=== PATIENT | female | born 1975 | race Caucasian/White ===

== ENCOUNTER 2017-07-17 12:51 | Emergency (ER) | payer SELFPAY ==
[2017-07-17] MEDS ORDERED: Ondansetron INJ* 2 MG/ML VIAL IV ONE (13:01)
[2017-07-17 14:04] LABS: Urine Bilirubin Negative (Negative); Urine Glucose Negative (Negative); Urine Nitrite Negative (Negative)
[2017-07-17 14:04] LABS: Hematocrit 42 % (35-47); Hemoglobin 14.7 g/dl (12.0-16.0); Mean Corpuscular HGB Conc 35 g/dl (31-36); Mean Corpuscular Hemoglobin 32 pg (27-31); Mean Corpuscular Volume 92 fL (80-97); Mean Platelet Volume 11 um3 (7.4-10.4); Red Blood Count 4.62 10^6/ul (4.0-5.4); Red Cell Distribution Width 14 % (10.5-15); White Blood Count 9.1 10^3/ul (3.5-10.8)
[2017-07-17 14:17] LABS: ALT 12 U/L (7-52); Albumin 4.1 g/dL (3.2-5.2); Alkaline Phosphatase 75 U/L (34-104); BUN/Creatinine Ratio 7.9 (8-20); Blood Urea Nitrogen 5 mg/dL (6-24); C Reactive Protein 3.85 mg/L (< 5.00); CO2 Carbon Dioxide 28 mmol/L (22-32); Calcium 9.9 mg/dL (8.6-10.3); Chloride 103 mmol/L (101-111); EGFR African American 133.3 (>60); EGFR Non-African American 103.6 (>60); Glucose 85 mg/dL (70-100); Sodium 136 mmol/L (133-145); Total Protein 7.1 g/dL (6.4-8.9)
--- NOTE | 2017-07-17 14:39 | RAD ---
INDICATION: Cough COMPARISON: Chest x-ray dated May 27, 2016 TECHNIQUE: PA and lateral views of the chest were obtained. FINDINGS: The heart and mediastinum are normal in size and contour. The lungs are grossly clear. There is no evidence of large pleural effusion. Visualized bones are normal for the patient's age. There is no radiographic evidence of free air beneath the diaphragm IMPRESSION: No radiographic evidence of acute cardiopulmonary disease.
[2017-07-17 14:47] LABS: Anion Gap 5 mmol/L (2-11)
[2017-07-17] MEDS ORDERED: Albuterol/Ipratropium NEB.SOL* Albuterol 2.5 MG/Ipratropium 0.5 MG 3 ML INH ONE (16:05)
[2017-07-17] MEDS ORDERED: Azithromycin TAB* 250 MG PO ONE (16:05)
[2017-07-17] MEDS ORDERED: methylPREDNISolone 125 MG* 2 ML VIAL IV ONE (16:05)
[2017-07-17 17:28] VITALS: BP 96/56
--- NOTE | 2017-07-18 08:28 | ED ---
Jeremias Xiong Angela, scribed for Herman Roy MD on 07/17/17 at 1304 . Respiratory - HPI Summary HPI Summary: This pt is a 42 y/o female presenting to [facility] via EMS c/o cough today. Pt reports her coughing episode caused her to vomit blood and have epistaxis. Pt notes her epistaxis has resolved. Pt describes she has to cough due to the feeling of a "hair in the back of the throat." She additionally c/o numbness on the right side, which began a couple of days ago. Pt denies fever. She denies PMHx of COPD. Pt is a current smoker and smokes 1 ppd (for 15 years now). PMHx includes asthma, kidney stones. She denies drinking alcohol. Surgeries include surgical repair of patent ductus arteriosus, 3 c-sections, kidney stone removal. - History of Current Complaint Chief Complaint: EDGeneral Stated Complaint: GENERAL ILLNESS Hx Obtained From: Patient Onset/Duration: Lasting Days, Still Present Timing: Constant Pain Intensity: 0 Associated Signs and Symptoms: Negative - Allergy/Home Medications Allergies/Adverse Reactions: Allergies Allergy/AdvReac Type Severity Reaction Status Date / Time No Known Allergies Allergy Verified 07/17/17 13:03 PMH/Surg Hx/FS Hx/Imm Hx Endocrine/Hematology History: Denies: Hx Anticoagulant Therapy, Hx Diabetes, Hx Thyroid Disease Cardiovascular History: Denies: Hx Hypertension, Hx Pacemaker/ICD Respiratory History: Reports: Hx Asthma - untreated Denies: Hx Chronic Obstructive Pulmonary Disease (COPD) History: Reports: Hx Kidney Stones, Hx Renal Disease - Kidney Stones Sensory History: Reports: Hx Contacts or Glasses Opthamlomology History: Reports: Hx Contacts or Glasses Neurological History: Denies: Hx Dementia, Hx Seizures Psychiatric History: Reports: Hx Depression Denies: Hx Substance Abuse - Surgical History Surgery Procedure, Year, and Place: surgical repair of patent ductus arteriosus. 3 c-sections - Immunization History Date of Tetanus Vaccine: unknown Date of Influenza Vaccine: 2010 Infectious Disease History: No Infectious Disease History: Denies: Hx Hepatitis, Hx Human Immunodeficiency Virus (HIV), Traveled Outside the US in Last 30 Days - Family History Known Family History: Positive: Hypertension, Diabetes - Social History Alcohol Use: None Substance Use Type: Reports: None Smoking Status (MU): Heavy Every Day Tobacco Smoker Review of Systems Negative: Fever, Chills Positive: Epistaxis Positive: Cough Positive: Vomiting - hematemesis Genitourinary: Negative Musculoskeletal: Negative Skin: Negative Positive: Numbness - on the right side All Other Systems Reviewed And Are Negative: Yes Physical Exam - Summary Physical Exam Summary: VITAL SIGNS: Reviewed. GENERAL: Patient is a well-developed and nourished female who is lying comfortable in the stretcher. Patient is not in any acute respiratory distress. HEAD AND FACE: No signs of trauma. No ecchymosis, hematomas or skull depressions. No sinus tenderness. There is no old blood or active bleeding from the nostrils. EYES: PERRLA, EOMI x 2, No injected conjunctiva, no nystagmus. EARS: Hearing grossly intact. Ear canals and tympanic membranes are within normal limits. MOUTH: Oropharynx within normal limits. No bleeding in the throat. NECK: Supple, trachea is midline, no adenopathy, no JVD, no carotid bruit, no c- spine tenderness, neck with full ROM. CHEST: Symmetric, no tenderness at palpation LUNGS: There are bilateral crackles. CVS: Regular rate and rhythm, S1 and S2 present, no murmurs or gallops appreciated. ABDOMEN: Soft, non-tender. No signs of distention. No rebound no guarding, and no masses palpated. Bowel sounds are normal. EXTREMITIES: FROM in all major joints, no edema, no cyanosis or clubbing. NEURO: Alert and oriented x 3. No acute neurological deficits. Speech is normal and follows commands. SKIN: Dry and warm Triage Information Reviewed: Yes Vital Signs On Initial Exam: Initial Vitals Temp Pulse Resp BP Pulse Ox 98.0 F 72 16 107/56 96 07/17/17 12:59 07/17/17 12:59 07/17/17 12:59 07/17/17 12:59 07/17/17 12:59 Vital Signs Reviewed: Yes Diagnostics - Vital Signs Vital Signs Temp Pulse Resp BP Pulse Ox 07/17/17 12:59 98.0 F 72 16 107/56 96 - Laboratory Lab Results: Lab Results 07/17/17 07/17/17 07/17/17 Range/Units 13:26 13:48 13:48 WBC (3.5-10.8) 10^3/ul RBC (4.0-5.4) 10^6/ul Hgb (12.0-16.0) g/dl Hct (35-47) % MCV (80-97) fL MCH (27-31) pg MCHC (31-36) g/dl RDW (10.5-15) % Plt Count (150-450) 10^3/ul MPV (7.4-10.4) um3 Neut % (Auto) (38-83) % Lymph % (Auto) (25-47) % [place] % (Auto) (1-9) % Eos % (Auto) (0-6) % Baso % (Auto) (0-2) % Absolute Neuts (auto) (1.5-7.7) 10^3/ul Absolute Lymphs (auto) (1.0-4.8) 10^3/ul Absolute Monos (auto) (0-0.8) 10^3/ul Absolute Eos (auto) (0-0.6) 10^3/ul Absolute Basos (auto) (0-0.2) 10^3/ul Absolute Nucleated RBC 10^3/ul Nucleated RBC % Sodium 136 (133-145) mmol/L Potassium TNP Chloride 103 (101-111) mmol/L Carbon Dioxide 28 (22-32) mmol/L Anion Gap 5 (2-11) mmol/L BUN 5 L (6-24) mg/dL Creatinine 0.63 (0.51-0.95) mg/dL Est GFR ( Amer) 133.3 (>60) Est GFR (Non-Af Amer) 103.6 (>60) BUN/Creatinine Ratio 7.9 L (8-20) Glucose 85 (70-100) mg/dL Lactic Acid (0.5-2.0) mmol/L Calcium 9.9 (8.6-10.3) mg/dL Total Bilirubin 0.40 (0.2-1.0) mg/dL AST TNP ALT 12 (7-52) U/L Alkaline Phosphatase 75 (34-104) U/L C-Reactive Protein 3.85 (< 5.00) mg/L B-Natriuretic Peptide 31 ( - 100) pg/mL Total Protein 7.1 (6.4-8.9) g/dL Albumin 4.1 (3.2-5.2) g/dL Globulin 3.0 (2-4) g/dL Albumin/Globulin Ratio 1.4 (1-3) Urine Color Straw Urine Appearance Clear Urine pH 7.0 (5-9) Ur Specific [place] 1.000 L (1.010-1.030) Urine Protein Negative (Negative) Urine Ketones Negative (Negative) Urine Blood Negative (Negative) Urine Nitrate Negative (Negative) Urine Bilirubin Negative (Negative) Urine Urobilinogen Negative (Negative) Ur Leukocyte Esterase Negative (Negative) Urine Glucose Negative (Negative) 07/17/17 07/17/17 Range/Units 13:48 14:10 WBC 9.1 (3.5-10.8) 10^3/ul RBC 4.62 (4.0-5.4) 10^6/ul Hgb 14.7 (12.0-16.0) g/dl Hct 42 (35-47) % MCV 92 (80-97) fL MCH 32 H (27-31) pg MCHC 35 (31-36) g/dl RDW 14 (10.5-15) % Plt Count 206 (150-450) 10^3/ul MPV 11 H (7.4-10.4) um3 Neut % (Auto) 68.7 (38-83) % Lymph % (Auto) 23.7 L (25-47) % [place] % (Auto) 5.5 (1-9) % Eos % (Auto) 1.3 (0-6) % Baso % (Auto) 0.8 (0-2) % Absolute Neuts (auto) 6.3 (1.5-7.7) 10^3/ul Absolute Lymphs (auto) 2.2 (1.0-4.8) 10^3/ul Absolute Monos (auto) 0.5 (0-0.8) 10^3/ul Absolute Eos (auto) 0.1 (0-0.6) 10^3/ul Absolute Basos (auto) 0.1 (0-0.2) 10^3/ul Absolute Nucleated RBC 0 10^3/ul Nucleated RBC % 0 Sodium (133-145) mmol/L Potassium Chloride (101-111) mmol/L Carbon Dioxide (22-32) mmol/L Anion Gap (2-11) mmol/L BUN (6-24) mg/dL Creatinine (0.51-0.95) mg/dL Est GFR ( Amer) (>60) Est GFR (Non-Af Amer) (>60) BUN/Creatinine Ratio (8-20) Glucose (70-100) mg/dL Lactic Acid 0.9 (0.5-2.0) mmol/L Calcium (8.6-10.3) mg/dL Total Bilirubin (0.2-1.0) mg/dL AST ALT (7-52) U/L Alkaline Phosphatase (34-104) U/L C-Reactive Protein (< 5.00) mg/L B-Natriuretic Peptide ( - 100) pg/mL Total Protein (6.4-8.9) g/dL Albumin (3.2-5.2) g/dL Globulin (2-4) g/dL Albumin/Globulin Ratio (1-3) Urine Color Urine Appearance Urine pH (5-9) Ur Specific Glen (1.010-1.030) Urine Protein (Negative) Urine Ketones (Negative) Urine Blood (Negative) Urine Nitrate (Negative) Urine Bilirubin (Negative) Urine Urobilinogen (Negative) Ur Leukocyte Esterase (Negative) Urine Glucose (Negative) Result Diagrams: 07/17/17 13:48 07/17/17 13:48 Lab Statement: Any lab studies that have been ordered have been reviewed, and results considered in the medical decision making process. - Radiology Chest XR Xray Interpretation: No Acute Changes - IMPRESSION: No radiographic evidence of acute cardiopulmonary disease. ED physician has reviewed this radiology report and agrees. Radiology Interpretation Completed By: Radiologist - EKG 1319 Cardiac Rate: NL EKG Rhythm: Sinus Rhythm - at 73 bpm EKG Interpretation: No ST elevation Disposition - Course Assessment/Plan: This pt is a 42 y/o female presenting to [facility] via EMS c/o cough today. Pt reports her coughing episode caused her to vomit blood and have epistaxis. Pt notes her epistaxis has resolved. Pt describes she has to cough due to the feeling of a "hair in the back of the throat." She additionally c/o numbness on the right side, which began a couple of days ago. Pt denies fever. She denies PMHx of COPD. Pt is a current smoker and smokes 1 ppd (for 15 years now). PMHx includes asthma, kidney stones. She denies drinking alcohol. Surgeries include surgical repair of patent ductus arteriosus, 3 c-sections, kidney stone removal. Test results without any significant abnormalities. Urinalysis is negative for UTI. Chest XR is negative for pneumonia. In the physical exam, the pt had some crackles at the bases of the lungs possibly due to early bronchitis and COPD exacerbation. She was given Duoneb, Solu-medrol, and azithromycin. After these medications the pt is feeling better and did not have any other episodes of epistaxis, nausea or vomiting. Therefore, the pt will be discharged home with follow up from her PCP. Pt is hemodynamically stable, alert and oriented x3. - Diagnoses Provider Diagnoses: Bronchitis, COPD (chronic obstructive pulmonary disease) Discharge - Discharge Plan Condition: Stable Disposition: HOME Prescriptions: Azithromycin TAB* [Zithromax TAB (Z-MAKAYLA) 250 mg #6 tabs] 250 mg PO DAILY #4 tab Patient Education Materials: Acute Bronchitis (ED) Forms: *Work Release Referrals: Radha NAJERA,Shaun Smart [Medical Doctor] - Additional Instructions: Please follow up with your primary care provider. RETURN TO THE ED FOR ANY WORSENING SYMPTOMS. The documentation as recorded by the Jeremias agosto Angela accurately reflects the service I personally performed and the decisions made by , Herman Roy MD.
== END 2017-07-17 17:28 | disposition home or self-care (01) ==
LOC: ED 12:51
DX: J40 Bronchitis, not specified as acute or chronic (principal); J44.9 Chronic obstructive pulmonary disease, unspecified; R05 Cough; K92.0 Hematemesis; F17.210 Nicotine dependence, cigarettes, uncomplicated
CPT/HCPCS: 36415; 71020; 80053; 81003; 83605; 83880; 85025; 86140; 87040; 93005; 94640; 99283; A9270-GY; J2405; J2930

== ENCOUNTER 2018-05-11 10:19 | Emergency (ER) | payer MEDICAID, OTHER ==
[2018-05-11] MEDS ORDERED: Ondansetron INJ* 2 MG/ML VIAL IV ONE (12:03)
[2018-05-11] MEDS ORDERED: Morphine INJ* 2 MG/ML 1 ML SYRINGE (TWO MG - NEW SYRINGE VERSION) IV ONE (12:03)
[2018-05-11] MEDS ORDERED: NS 0.9% 1000 ML* 2,000 ML IV ONE (12:03)
--- NOTE | 2018-05-11 12:08 | ED ---
Abdominal Pain/Female - HPI Summary HPI Summary: This pt is a 43 y/o female, accompanied by boyfriend Amrit, presenting to [facility] c /o worsening LUQ abdominal pain for more than 3 days. Her abd pain woke her up last night. Pt describes abd pain as burning and cramping. She states "it feels like I'm having a shot of vodka without the drink." Pt notes her abd pain radiates to her esophagus down to her lower abd. She rates her abd pain beyond a 10/10 in severity. Additionally reports nausea, sweats, swelling on her face. Denies dysuria, hematuria, vomiting, diarrhea, chest pain, SOB, vaginal bleeding. Pt took ibuprofen today at 10:00 with no relief. Pt states last week she was in the ED at [facility] and was diagnosed with diverticulitis. PMHx includes diverticulitis, PDA when she was a baby. Pt is a current smoker. Denies drug or alcohol use. Her PCP is Malu from [place], [place] and she last saw her on 05/07/18. LMP: April 13. She states her periods are regular. NKDA. Home Medications Medication Instructions Recorded Confirmed Type Ciprofloxacin HCl [Cipro] 500 mg PO BID 05/11/18 05/11/18 History metroNIDAZOLE * 500 mg PO TID 05/11/18 05/11/18 History - History of Current Complaint Chief Complaint: EDAbdPain Stated Complaint: ABD PAIN Hx Obtained From: Patient, Family/Tax Services Manager - socratesfriend, Amrit Onset/Duration: Lasting Days - more than 3, Still Present Timing: Days Severity Currently: Severe Pain Intensity: 10 Pain Scale Used: 0-10 Numeric Location: Discrete At: LUQ Radiates: Yes Radiates to: Other - from her esophagus down to lower abd Character: Burning, Cramping Aggravating Factor(s): Nothing Alleviating Factor(s): Nothing Associated Signs and Symptoms: Positive: Nausea, Other: - POS: diaphoresis.. Negative: Fever, Cough, Chest Pain, Vomiting, Diarrhea Allergies/Adverse Reactions: Allergies Allergy/AdvReac Type Severity Reaction Status Date / Time No Known Allergies Allergy Verified 05/11/18 14:56 Home Medications: Home Medications Ciprofloxacin HCl [Cipro] 500 mg PO BID 05/11/18 [History Confirmed 05/11/18] metroNIDAZOLE * 500 mg PO TID 05/11/18 [History Confirmed 05/11/18] PMH/Surg Hx/FS Hx/Imm Hx Endocrine/Hematology History: Denies: Hx Anticoagulant Therapy, Hx Diabetes, Hx Thyroid Disease Cardiovascular History: Denies: Hx Hypertension, Hx Pacemaker/ICD Respiratory History: Reports: Hx Asthma - untreated Denies: Hx Chronic Obstructive Pulmonary Disease (COPD) GI History: Reports: Other GI Disorders - Diverticulitis History: Reports: Hx Kidney Stones Denies: Hx Renal Disease Sensory History: Reports: Hx Contacts or Glasses Denies: Hx Hearing Aid Opthamlomology History: Reports: Hx Contacts or Glasses Neurological History: Denies: Hx Dementia, Hx Seizures Psychiatric History: Reports: Hx Depression Denies: Hx Substance Abuse - Surgical History Surgery Procedure, Year, and Place: surgical repair of patent ductus arteriosus (PDA) when she was 5 y/o. 3 c-sections. kidney stent - Immunization History Date of Tetanus Vaccine: unknown Date of Influenza Vaccine: 2010 Infectious Disease History: No Infectious Disease History: Denies: Hx Hepatitis, Hx Human Immunodeficiency Virus (HIV), Traveled Outside the US in Last 30 Days - Family History Known Family History: Positive: Hypertension, Diabetes Family History: FHx gallbladder issues - Social History Alcohol Use: None Substance Use Type: Reports: None Substance Use Comment - Amount & Last Used: denies Smoking Status (MU): Heavy Every Day Tobacco Smoker Type: Cigarettes Length of Time of Smoking/Using Tobacco: 28 years Have You Smoked in the Last Year: Yes Review of Systems Positive: Skin Diaphoresis. Negative: Fever ENT: Other - face swelling Negative: Chest Pain Negative: Cough Positive: Abdominal Pain, Nausea. Negative: Vomiting, Diarrhea Negative: dysuria, hematuria, other - vaginal bleeding All Other Systems Reviewed And Are Negative: Yes Physical Exam - Summary Physical Exam Summary: Appearance: Well-appearing, moderate pain distress, well-nourished Skin: Warm, color reflects adequate perfusion, dry. Scar from heart surgery on the left infrascapular area. Head: Normal Head/Face inspection, atraumatic Eyes: Conjunctiva clear ENT: Normal inspection Neck: Supple, no nodes, no JVD Respiratory: Lungs with scattered wheezes, normal breath sounds, no respiratory distress Cardio: RRR, No murmur, pulses normal, brisk capillary refill Abdomen: Soft, LUQ tenderness Bowel sounds: Good bowel sounds Musculoskeletal: Strength Intact/ROM intact, no calf tenderness, no edema. Psychological: Normal Neuro: Alert, muscle tone normal, no focal deficit Triage Information Reviewed: Yes Vital Signs On Initial Exam: Initial Vitals Temp Pulse Resp BP Pulse Ox 97.4 F 87 17 108/55 99 05/11/18 10:23 05/11/18 10:23 05/11/18 10:23 05/11/18 10:23 05/11/18 10:23 Vital Signs Reviewed: Yes Diagnostics - Vital Signs Vital Signs Temp Pulse Resp BP Pulse Ox 05/11/18 10:23 97.4 F 87 17 108/55 99 - Laboratory Result Diagrams: 05/11/18 12:50 05/11/18 12:50 Lab Statement: Any lab studies that have been ordered have been reviewed, and results considered in the medical decision making process. - Radiology Chest XR Xray Interpretation: No Acute Changes - IMPRESSION: No evidence for active cardiopulmonary disease. Dr. Taylor has reviewed this report. Radiology Interpretation Completed By: Radiologist - CT CT Abdomen/Pelvis CT Interpretation: Positive (See Comments) - IMPRESSION: 1. Multiple right ovarian cysts measuring up to 2.7 cm. 2. Otherwise, no acute CT pathology of the visualized abdomen and pelvis. Dr. Taylor has reviewed this report. CT Interpretation Completed By: Radiologist - Ultrasound No standard instances Ultrasound Interpretation: Positive (See Comments) - Pelvic US IMPRESSION: 3.1 x 1.9 x 1.8 cm nodule right ovary with internal echoes. This could be hemorrhagic cyst or solid. Smaller adjacent similar-appearing nodules. No current evidence for torsion with color-flow and vascular forms documented. Follow up study in 5-6 weeks time is recommended to confirm cyclical variation. Dr. Taylor has reviewed this report. Ultrasound Interpretation Completed By: Radiologist - EKG 12:16 Cardiac Rate: NL - at 71 bpm EKG Rhythm: Sinus Rhythm Ectopy: None EKG Interpretation: nml AV/IV CT, nml QTc. Right axis deviation, right axis is 105. EKG Comparison: No Significant Change - no change compared to 07/17/17. Re-Evaluation - Re-Evaluation First Eval Re-Evaluation Time: 17:24 Comment: BP 106/60, HR is 69, O2 sat is 95% on room air. I reviewed the CT and XR results with the pt and boyfriend. She currently rates her burning and cramping pain 5/10 in severity. Second Eval Re-Evaluation Time: 18:55 Comment: I reviewed pelvic US results with the pt. Abd pain has resolved. I recommended to use Tylenol and antacid for her discomfort. Abdominal Pain Fem Course/Dx - Course Course Of Treatment: Pt medications reviewed this visit. Pt is a 43 y/o female , with recent dx of diverticulitis, presenting to the ED for worsening LUQ abd pain. Chest XR is negative. CT abdomen/pelvis shows 1. Multiple right ovarian cysts measuring up to 2.7 cm. 2. Otherwise, no acute CT pathology of the visualized abdomen and pelvis. Pelvic US reveals nodule on right ovary. Labs show WBC of 12.6, 2 troponins are negative. Pt's pain is on opposite side of her ovarian cysts. Pt received treatment for her diverticulitis while in the ED. - Diagnoses Provider Diagnoses: Abdominal pain, GERD (gastroesophageal reflux disease), Diverticulitis, Right ovarian cyst Discharge - Sign-Out/Discharge Documenting (check all that apply): Patient Departure - Discharge - Discharge Plan Forms: *Work Release Referrals: Malu Simental [Nurse Practitioner] - - Attestation Statements Document Initiated by Scribe: Yes Documenting Scribe: Eladia Mcdowell Provider For Whom Scribe is Documenting (Include Credential): Dr. Michelle Taylor MD Scribe Attestation: Eladia Xiong, scribed for Dr. Michelle Taylor MD on 05/11/18 at 1900.
--- NOTE | 2018-05-11 12:50 | RAD ---
INDICATION: Left upper quadrant pain and cough. COMPARISON: Comparison is made with a prior chest x-ray study from November 30, 2017. TECHNIQUE: Dual-energy PA and lateral views of the chest were obtained. FINDINGS: The heart is within normal limits in size. Mediastinal and hilar contours appear within normal limits. The lungs are hyperinflated and clear. No pleural effusion is seen. IMPRESSION: NO EVIDENCE FOR ACTIVE CARDIOPULMONARY DISEASE.
[2018-05-11 13:03] LABS: Hematocrit 45 % (35-47); Hemoglobin 15.3 g/dl (12.0-16.0); Mean Corpuscular HGB Conc 34 g/dl (31-36); Mean Corpuscular Hemoglobin 32 pg (27-31); Mean Corpuscular Volume 92 fL (80-97); Mean Platelet Volume 9.5 um3 (7.4-10.4); Platelet Count 187 10^3/ul (150-450); Red Blood Count 4.87 10^6/ul (4.00-5.40); Red Cell Distribution Width 15 % (10.5-15); White Blood Count 12.6 10^3/ul (3.5-10.8)
[2018-05-11 13:22] LABS: EGFR Non-African American 91.3 (>60)
[2018-05-11 13:25] LABS: Urine Appearance Clear; Urine Blood Negative (Negative); Urine Color Straw; Urine Ketones Negative (Negative); Urine Protein Negative (Negative); Urine Red Blood Cell Trace(0-2/hpf) (Absent); Urine Specific Gravity 1.003 (1.010-1.030); Urine Urobilinogen Negative (Negative); Urine White Blood Cell Trace(0-5/hpf) (Absent)
[2018-05-11 13:31] LABS: ABS Basophils 0.1 10^3/ul (0-0.2); ABS Eosinophils 0.3 10^3/ul (0-0.6); ABS Lymphocytes 2.2 10^3/ul (1.0-4.8); ABS Monocytes 0.7 10^3/ul (0-0.8); ABS Neutrophils 9.3 10^3/ul (1.5-7.7); ABS Nucleated RBC 0 10^3/ul; Eosinophil % 2.4 % (0-6); Lymphocyte % 17.6 % (25-47); Nucleated Red Blood Cells % 0.1
[2018-05-11] MEDS ORDERED: Iohexol 300* (CONTRAST) 10 ML SDV IV ONE (16:18)
--- NOTE | 2018-05-11 17:07 | RAD ---
CLINICAL HISTORY: LUQ abd pain COMPARISON: None April 10, 2006 TECHNIQUE: Multiple contiguous axial CT scans were obtained of the abdomen and pelvis after the administration of intravenous contrast. Coronal and sagittal multiplanar reformations are submitted for review. FINDINGS: LUNG BASES: The lung bases are clear. LIVER: The liver is normal in shape, size, contour, and attenuation. BILE DUCTS: There is no intrahepatic or extrahepatic biliary dilatation. GALLBLADDER: The gallbladder is normal, without pericholecystic inflammatory change. PANCREAS: The pancreas is normal, without mass or ductal dilatation. SPLEEN: Normal in size and appearance. UPPER GI TRACT: Evaluation of the gastrointestinal tract is limited by incomplete gastric distention. The upper GI tract is unremarkable. SMALL BOWEL AND MESENTERY: The small bowel is normal in contour, course, and caliber. There is no obstruction or dilatation. COLON: The colon is normal in contour, course, caliber. There is no pericolonic inflammatory change. There is a tubular, vermiform, hollow viscus that is blind ending, and originates from the cecum, consistent with a normal appendix. There is no periappendiceal inflammatory change. This is best seen on coronal images 28 through 40. ADRENALS: Normal bilaterally. KIDNEYS: The kidneys are normal in shape, size, contour, and axis. There is no hydronephrosis or nephrolithiasis. BLADDER: The bladder is smooth in contour. PELVIC ORGANS: Multiple ovarian cysts are noted on the right measuring up to 2.7 cm. The pelvic organs are otherwise unremarkable for patient age and technique. AORTA: The aorta is normal. IVC: Unremarkable LYMPH NODES: There is no lymphadenopathy by size criteria. ABDOMINAL WALL: There is no evidence for abdominal wall hernia. BONES AND SOFT TISSUES: Unremarkable OTHER: None IMPRESSION: 1. MULTIPLE RIGHT OVARIAN CYSTS MEASURING UP TO 2.7 CM. 2. OTHERWISE, NO ACUTE CT PATHOLOGY OF THE VISUALIZED ABDOMEN AND PELVIS.
[2018-05-11] MEDS ORDERED: Ciprofloxacin 400MG IVPREMIX(* 400 MG/200 ML BAG IVPB ONE (17:34)
[2018-05-11] MEDS ORDERED: metroNIDAZOLE IV 500 MG/100ML* 500 MG/100 ML BAG IVPB ONE (17:35)
[2018-05-11] MEDS ORDERED: HYDROcodone/ACETAMIN 5-325 MG* 1 TAB PO ONE (17:35)
[2018-05-11] MEDS ORDERED: Lidocaine 2% VISCOUS* 15 ML UDC PO ONE (17:36)
[2018-05-11] MEDS ORDERED: Al Hydrox/Mg Hydrox/Simet LIQ* 30 ML UDC PO ONE (17:36)
[2018-05-11] MEDS ORDERED: Ciprofloxacin TAB* 750 MG PO ONE (18:07)
[2018-05-11] MEDS ORDERED: metroNIDAZOLE TAB* 250 MG PO ONE (18:08)
--- NOTE | 2018-05-11 18:32 | RAD ---
EXAM: US Pelvis Complete, Transabdominal CLINICAL HISTORY: 43 years old, female; Pain; Abdominal pain; Left lower quadrant; Additional info: Right ovarian cysts on CT TECHNIQUE: Real-time transabdominal pelvic ultrasound (complete) with image documentation. Duplex evaluation performed to exclude torsion. COMPARISON: No relevant prior studies available. FINDINGS: Uterus/cervix: Uterus measures 12.4 x 4.3 x 6.4 cm. Endometrial thickness 10 mm. No myometrial mass. Right ovary: 3.1 x 1.9 x 1.8 cm nodule right ovary with internal echoes. This could be hemorrhagic cyst or solid. Smaller adjacent similar-appearing nodules. No current evidence for torsion with color-flow and vascular forms documented. Followup study in 5-6 weeks time is recommended to confirm cyclical variation. Right ovary measures 4.9 x 3.1 x 2.1 cm. Left ovary: Left ovary measures 3.1 x 2.9 x 2 cm. Normal blood flow. Free fluid: No free fluid. Bladder: Unremarkable as visualized. Wall is normal thickness for degree of distention. IMPRESSION: 3.1 x 1.9 x 1.8 cm nodule right ovary with internal echoes. This could be hemorrhagic cyst or solid. Smaller adjacent similar-appearing nodules. No current evidence for torsion with color-flow and vascular forms documented. Followup study in 5-6 weeks time is recommended to confirm cyclical variation.
[2018-05-11 19:24] VITALS: BP 100/67
== END 2018-05-11 19:23 | disposition home or self-care (01) ==
LOC: ED 10:19
DX: R10.9 Unspecified abdominal pain (principal); K21.9 Gastro-esophageal reflux disease without esophagitis; K57.92 Diverticulitis of intestine, part unspecified, without perforation or abscess without bleeding; N83.201 Unspecified ovarian cyst, right side
CPT/HCPCS: 36415; 71046; 74177; 76856; 80053; 80307; 81003; 81015; 82150; 83605; 83690; 84484; 84702; 85025; 86140; 87086; 93005; 96374; 96375; 99283; A9270-GY; J2270; J2405; Q9967

== ENCOUNTER 2018-12-06 10:50 | Inpatient (IN) | payer SELFPAY ==
[2018-12-06] MEDS ORDERED: Albuterol/Ipratropium NEB.SOL* Albuterol 2.5 MG/Ipratropium 0.5 MG 3 ML INH ONE (11:08)
[2018-12-06] MEDS ORDERED: methylPREDNISolone 125 MG* 2 ML VIAL IV ONE (11:20)
[2018-12-06] MEDS ORDERED: Magnesium Sulfate 2 GM IV* 2 GM/50 ML BAG IVPB ONE (11:20)
[2018-12-06] MEDS ORDERED: Ondansetron INJ* 2 MG/ML VIAL ONE (11:36)
[2018-12-06 11:42] LABS: ABS Basophils 0.1 10^3/ul (0-0.2); ABS Eosinophils 0.1 10^3/ul (0-0.6); ABS Lymphocytes 1.2 10^3/ul (1.0-4.8); ABS Monocytes 0.4 10^3/ul (0-0.8); ABS Nucleated RBC 0 10^3/ul; Hematocrit 47 % (33-41); Hemoglobin 15.9 g/dL (12.0-16.0); Lymphocyte % 17.6 %; Mean Corpuscular HGB Conc 34 g/dL (31-36); Mean Corpuscular Hemoglobin 31 pg (27-31); Mean Corpuscular Volume 92 fL (80-97); Nucleated Red Blood Cells % 0.1; Platelet Count 137 10^3/uL (150-450); Red Blood Count 5.12 10^6 /uL (3.70-4.87); Red Cell Distribution Width 14 % (10.5-15); White Blood Count 6.7 10^3/uL (3.5-10.8)
[2018-12-06] MEDS ORDERED: Ondansetron INJ* 2 MG/ML VIAL IV ONE (11:44)
[2018-12-06 11:48] LABS: INR 1.02 (0.77-1.02)
[2018-12-06 11:56] LABS: ALT 17 U/L (7-52); AST 21 U/L (13-39); Albumin 4.3 g/dL (3.2-5.2); Albumin/Globulin Ratio 1.5 (1-3); Alkaline Phosphatase 83 U/L (34-104); Anion Gap 7 mmol/L (2-11); BUN/Creatinine Ratio 14.8 (8-20); Blood Urea Nitrogen 8 mg/dL (6-24); C Reactive Protein 8.89 mg/L (<8.01); CO2 Carbon Dioxide 30 mmol/L (22-32); Calcium 9.5 mg/dL (8.6-10.3); Chloride 101 mmol/L (101-111); EGFR African American 149.1 (>60); EGFR Non-African American 123.2 (>60); Globulin 2.8 g/dL (2-4); Glucose 94 mg/dL (70-100); Potassium 3.7 mmol/L (3.5-5.0); Sodium 138 mmol/L (135-145); Total Protein 7.1 g/dL (6.4-8.9)
[2018-12-06] MEDS ORDERED: Iohexol 350* (CONTRAST) 500 ML MDV IV ONE (11:59)
[2018-12-06 12:02] LABS: Myoglobin 24.2 ng/mL (14.3-65.8)
[2018-12-06 12:04] LABS: HCG Pregnancy < 0.60 mIU/mL
[2018-12-06 12:06] LABS: Troponin I 0.14 ng/mL (<0.04)
[2018-12-06 13:02] LABS: Influenza A Molecular NEGATIVE (Negative); Influenza B Molecular NEGATIVE (Negative)
--- NOTE | 2018-12-06 14:23 | ED ---
Shortness of Breath - HPI Summary HPI Summary: Patient is a 43-year-old female with history of COPD and depression presenting to the ED with nausea, vomiting, feeling fatigued and shortness of breath since Friday. She states her shortness of breath has been worsening, but states her Chief complaint is nausea and vomiting. History of a PDA repair at 5 years old. She's currently smoking a half a pack per day. She was seen in the ED and admitted to the hospital 1 year ago for exact same symptoms and was found to have influenza. She does not require O2 at home. She states she has had no medication changes, denies any allergies, she has cough without production and vomiting is yellow and white per boyfriend. No other cardiac history on file. She is currently on Ventolin and Ellipta. - History of Current Complaint Chief Complaint: EDNauseaVomitDiarrh Time Seen by Provider: 12/06/18 11:06 Hx Obtained From: Patient Onset/Duration: Sudden Onset Timing: Constant Current Severity: Moderate Associated Signs & Symptoms: Cough (Productive) - Risk Factors Pulmonary Embolism: Negative Cardiac: Negative Pseudomonas: Negative - Allergy/Home Medications Allergies/Adverse Reactions: Allergies Allergy/AdvReac Type Severity Reaction Status Date / Time No Known Allergies Allergy Verified 12/06/18 11:41 Home Medications: Home Medications Albuterol 2.5MG/3ML (0.083%)* [Ventolin 2.5 MG/3 ML NEB.SOTERO*] 2.5 mg INH Q6H PRN 12/06/18 [History Confirmed 12/06/18] Aspirin 81 mg CHEW TAB* [Aspirin Low Dose TAB*] 81 mg PO DAILY 12/06/18 [ History Confirmed 12/06/18] Atorvastatin* [Lipitor*] 10 mg PO BEDTIME 12/06/18 [History Confirmed 12/06/18] Umeclidinium [place] [Incruse Ellipta] 1 puff INH DAILY 12/06/18 [History Confirmed 12/06/18] PMH/Surg Hx/FS Hx/Imm Hx Previously Healthy: Yes Endocrine/Hematology History: Denies: Hx Anticoagulant Therapy, Hx Diabetes, Hx Thyroid Disease Cardiovascular History: Denies: Hx Hypertension, Hx Pacemaker/ICD Respiratory History: Reports: Hx Asthma - untreated Denies: Hx Chronic Obstructive Pulmonary Disease (COPD) GI History: Reports: Other GI Disorders - Diverticulitis History: Reports: Hx Kidney Stones Denies: Hx Renal Disease Sensory History: Reports: Hx Contacts or Glasses Denies: Hx Hearing Aid Opthamlomology History: Reports: Hx Contacts or Glasses Neurological History: Denies: Hx Dementia, Hx Seizures Psychiatric History: Reports: Hx Depression Denies: Hx Substance Abuse - Surgical History Surgery Procedure, Year, and Place: surgical repair of patent ductus arteriosus (PDA) when she was 5 y/o. 3 c-sections. kidney stent - Immunization History Date of Tetanus Vaccine: unknown Date of Influenza Vaccine: 2010 Hx Pertussis Vaccination: No Immunizations Up to Date: Yes Infectious Disease History: No Infectious Disease History: Denies: Hx Hepatitis, Hx Human Immunodeficiency Virus (HIV), Traveled Outside the [place] in Last 30 Days - Family History Known Family History: Positive: Hypertension, Diabetes Family History: FHx gallbladder issues - Social History Occupation: Employed Full-time Lives: With Family Alcohol Use: Rare Hx Substance Use: No Substance Use Type: Reports: None Substance Use Comment - Amount & Last Used: denies Hx Tobacco Use: Yes Smoking Status (MU): Light Every Day Tobacco Smoker Type: Cigarettes Length of Time of Smoking/Using Tobacco: 28 years Have You Smoked in the Last Year: Yes Review of Systems Constitutional: Negative Negative: Fever, Chills, Fatigue, Skin Diaphoresis Negative: Palpitations, Chest Pain Positive: Shortness Of Breath, Cough Positive: Abdominal Pain, Vomiting, Nausea Genitourinary: Negative Positive: no symptoms reported, see HPI Negative: Arthralgia, Myalgia Skin: Negative Neurological: Negative All Other Systems Reviewed And Are Negative: Yes Physical Exam Triage Information Reviewed: Yes Vital Signs On Initial Exam: Initial Vitals Temp Pulse Resp BP Pulse Ox 98.1 F 100 24 120/77 82 12/06/18 10:54 12/06/18 10:54 12/06/18 10:54 12/06/18 10:54 12/06/18 10:54 Vital Signs Reviewed: Yes Appearance: Positive: Well-Appearing, Well-Nourished Skin: Positive: Warm, Skin Color Reflects Adequate Perfusion Head/Face: Positive: Normal Head/Face Inspection Eyes: Positive: EOMI, Conjunctiva Clear Neck: Positive: Supple, No Lymphadenopathy Respiratory/Lung Sounds: Positive: Rales, Rhonchi Cardiovascular: Positive: Tachycardia Abdomen Description: Positive: Other: - Tenderness throughout my palpation Bowel Sounds: Positive: Present Psychiatric: Positive: Normal, Affect/Mood Appropriate Diagnostics - Vital Signs Vital Signs Temp Pulse Resp BP Pulse Ox 12/06/18 14:00 82 19 92 12/06/18 13:41 82 16 102/67 93 12/06/18 13:11 82 16 107/69 92 12/06/18 13:00 81 15 93 12/06/18 12:41 83 16 117/67 93 12/06/18 12:00 85 17 93 12/06/18 11:41 88 20 122/67 94 12/06/18 11:28 94 12/06/18 11:21 88 20 97 12/06/18 11:03 90 127/83 96 12/06/18 10:54 98.1 F 100 24 120/77 82 - Laboratory Lab Results: Lab Results 12/06/18 12/06/18 12/06/18 Range/Units 11:07 11:20 11:20 WBC 6.7 (3.5-10.8) 10^3/uL RBC 5.12 H (3.70-4.87) 10^6 /uL Hgb 15.9 (12.0-16.0) g/dL Hct 47 H (33-41) % MCV 92 (80-97) fL MCH 31 (27-31) pg MCHC 34 (31-36) g/dL RDW 14 (10.5-15) % Plt Count 137 L (150-450) 10^3/uL MPV 10.0 (7.4-10.4) fL Neut % (Auto) 74.6 % Lymph % (Auto) 17.6 % [place] % (Auto) 5.9 % Eos % (Auto) 1.0 % Baso % (Auto) 0.9 % Absolute Neuts (auto) 5.0 (1.5-7.7) 10^3/ul Absolute Lymphs (auto) 1.2 (1.0-4.8) 10^3/ul Absolute Monos (auto) 0.4 (0-0.8) 10^3/ul Absolute Eos (auto) 0.1 (0-0.6) 10^3/ul Absolute Basos (auto) 0.1 (0-0.2) 10^3/ul Absolute Nucleated RBC 0 10^3/ul Nucleated RBC % 0.1 INR (Anticoag Therapy) (0.77-1.02) ABG pH 7.39 (7.35-7.45) ABG pCO2 47 H (35-45) mmHg ABG pO2 78 L (80-100) mmHg ABG HCO3 27.0 (19-31) mmol/L ABG O2 Saturation 96.9 (94.0-98.0) % ABG Base Excess 2.8 H (-2.0-2.0) mmol/L Sodium 138 (135-145) mmol/L Potassium 3.7 (3.5-5.0) mmol/L Chloride 101 (101-111) mmol/L Carbon Dioxide 30 (22-32) mmol/L Anion Gap 7 (2-11) mmol/L BUN 8 (6-24) mg/dL Creatinine 0.54 (0.51-0.95) mg/dL Est GFR ( Amer) 149.1 (>60) Est GFR (Non-Af Amer) 123.2 (>60) BUN/Creatinine Ratio 14.8 (8-20) Glucose 94 (70-100) mg/dL Lactic Acid (0.5-2.0) mmol/L Calcium 9.5 (8.6-10.3) mg/dL Total Bilirubin 0.40 (0.2-1.0) mg/dL AST 21 (13-39) U/L ALT 17 (7-52) U/L Alkaline Phosphatase 83 (34-104) U/L Myoglobin 24.2 (14.3-65.8) ng/mL Troponin I 0.14 H* (<0.04) ng/mL C-Reactive Protein 8.89 H (<8.01) mg/L B-Natriuretic Peptide (<=100) pg/mL Total Protein 7.1 (6.4-8.9) g/dL Albumin 4.3 (3.2-5.2) g/dL Globulin 2.8 (2-4) g/dL Albumin/Globulin Ratio 1.5 (1-3) Beta HCG, Quant < 0.60 mIU/mL Influenza A (Rapid) (Negative) Influenza B (Rapid) (Negative) 12/06/18 12/06/18 12/06/18 Range/Units 11:20 11:20 11:20 WBC (3.5-10.8) 10^3/uL RBC (3.70-4.87) 10^6 /uL Hgb (12.0-16.0) g/dL Hct (33-41) % MCV (80-97) fL MCH (27-31) pg MCHC (31-36) g/dL RDW (10.5-15) % Plt Count (150-450) 10^3/uL MPV (7.4-10.4) fL Neut % (Auto) % Lymph % (Auto) % [place] % (Auto) % Eos % (Auto) % Baso % (Auto) % Absolute Neuts (auto) (1.5-7.7) 10^3/ul Absolute Lymphs (auto) (1.0-4.8) 10^3/ul Absolute Monos (auto) (0-0.8) 10^3/ul Absolute Eos (auto) (0-0.6) 10^3/ul Absolute Basos (auto) (0-0.2) 10^3/ul Absolute Nucleated RBC 10^3/ul Nucleated RBC % INR (Anticoag Therapy) 1.02 (0.77-1.02) ABG pH (7.35-7.45) ABG pCO2 (35-45) mmHg ABG pO2 (80-100) mmHg ABG HCO3 (19-31) mmol/L ABG O2 Saturation (94.0-98.0) % ABG Base Excess (-2.0-2.0) mmol/L Sodium (135-145) mmol/L Potassium (3.5-5.0) mmol/L Chloride (101-111) mmol/L Carbon Dioxide (22-32) mmol/L Anion Gap (2-11) mmol/L BUN (6-24) mg/dL Creatinine (0.51-0.95) mg/dL Est GFR ( Amer) (>60) Est GFR (Non-Af Amer) (>60) BUN/Creatinine Ratio (8-20) Glucose (70-100) mg/dL Lactic Acid 0.9 (0.5-2.0) mmol/L Calcium (8.6-10.3) mg/dL Total Bilirubin (0.2-1.0) mg/dL AST (13-39) U/L ALT (7-52) U/L Alkaline Phosphatase (34-104) U/L Myoglobin (14.3-65.8) ng/mL Troponin I (<0.04) ng/mL C-Reactive Protein (<8.01) mg/L B-Natriuretic Peptide 17 (<=100) pg/mL Total Protein (6.4-8.9) g/dL Albumin (3.2-5.2) g/dL Globulin (2-4) g/dL Albumin/Globulin Ratio (1-3) Beta HCG, Quant mIU/mL Influenza A (Rapid) (Negative) Influenza B (Rapid) (Negative) 12/06/18 Range/Units 11:52 WBC (3.5-10.8) 10^3/uL RBC (3.70-4.87) 10^6 /uL Hgb (12.0-16.0) g/dL Hct (33-41) % MCV (80-97) fL MCH (27-31) pg MCHC (31-36) g/dL RDW (10.5-15) % Plt Count (150-450) 10^3/uL MPV (7.4-10.4) fL Neut % (Auto) % Lymph % (Auto) % [place] % (Auto) % Eos % (Auto) % Baso % (Auto) % Absolute Neuts (auto) (1.5-7.7) 10^3/ul Absolute Lymphs (auto) (1.0-4.8) 10^3/ul Absolute Monos (auto) (0-0.8) 10^3/ul Absolute Eos (auto) (0-0.6) 10^3/ul Absolute Basos (auto) (0-0.2) 10^3/ul Absolute Nucleated RBC 10^3/ul Nucleated RBC % INR (Anticoag Therapy) (0.77-1.02) ABG pH (7.35-7.45) ABG pCO2 (35-45) mmHg ABG pO2 (80-100) mmHg ABG HCO3 (19-31) mmol/L ABG O2 Saturation (94.0-98.0) % ABG Base Excess (-2.0-2.0) mmol/L Sodium (135-145) mmol/L Potassium (3.5-5.0) mmol/L Chloride (101-111) mmol/L Carbon Dioxide (22-32) mmol/L Anion Gap (2-11) mmol/L BUN (6-24) mg/dL Creatinine (0.51-0.95) mg/dL Est GFR ( Amer) (>60) Est GFR (Non-Af Amer) (>60) BUN/Creatinine Ratio (8-20) Glucose (70-100) mg/dL Lactic Acid (0.5-2.0) mmol/L Calcium (8.6-10.3) mg/dL Total Bilirubin (0.2-1.0) mg/dL AST (13-39) U/L ALT (7-52) U/L Alkaline Phosphatase (34-104) U/L Myoglobin (14.3-65.8) ng/mL Troponin I (<0.04) ng/mL C-Reactive Protein (<8.01) mg/L B-Natriuretic Peptide (<=100) pg/mL Total Protein (6.4-8.9) g/dL Albumin (3.2-5.2) g/dL Globulin (2-4) g/dL Albumin/Globulin Ratio (1-3) Beta HCG, Quant mIU/mL Influenza A (Rapid) Negative (Negative) Influenza B (Rapid) Negative (Negative) Result Diagrams: 12/06/18 11:20 12/06/18 11:20 Lab Statement: Any lab studies that have been ordered have been reviewed, and results considered in the medical decision making process. Re-Evaluation - Re-Evaluation First Eval Change: Improved - Improved with placed on 5 L O2 Course/Dx - Course Course Of Treatment: Patient arrives and is found to be hypoxic at 82% on room air. She does not use oxygen at home. She continues to smoke half PPD. PDA repair at age 5. She remains on Ventolin and a lepta and nebulizer treatments, which have not improved her symptoms. She denies any fevers, sweats, chills. She has had several episodes of nausea and vomiting since Friday and this is remained intermittent. Continues to have normal bowel movements. Denies any constipation or diarrhea. Immediately on arrival, she is placed on a simple facemask with 10 L. Her O2 sat improved to 97% and this was reduced to 5 L. She remains hovering between 90 and 92% on 5 L. CTA chest abdomen pelvis obtained to assess for PE due to acute onset shortness of breath. This was negative for any of these findings. Troponin elevated at 0.14. Influenza negative. Patient at this time is comfortable after receiving Zofran and DuoNeb. Discussed case with hospitalist at 2:15 PM who agrees to admit for further evaluation. - Diagnoses Provider Diagnoses: COPD exacerbation - Physician Notifications Discussed Care of Patient With: Jose Chawla Time Discussed With Above Provider: 14:15 Instructed by Provider To: Admit As Inpatient - Critical Care Time Critical Care Time: 30-74 min Discharge - Sign-Out/Discharge Documenting (check all that apply): Patient Departure Patient Received Moderate/Deep Sedation with Procedure: No - Discharge Plan Condition: Good Disposition: ADMITTED TO [facility] Referrals: No Primary Care Phys,NOPCP [Primary Care Provider] - - Billing Disposition and Condition Condition: GOOD Disposition: Admitted to [facility]
[2018-12-06 14:28] LABS: Troponin I 0.15 ng/mL (<0.04)
[2018-12-06] MEDS ORDERED: NS 0.9% 1000 ML** 1,000 ML IV ONE (15:27)
[2018-12-06 16:00] LABS: CKMB ng/mL 1.5 ng/mL (0.6-6.3)
[2018-12-06] MEDS ORDERED: cefTRIAXone(*) 1 GM in NS 0.9% 50 ML* 50 ML IVPB SCH (17:00)
[2018-12-06] MEDS ORDERED: Azithromycin 500 mg/250 ml NS 500 MG/250 ML BAG IVPB SCH (17:30)
[2018-12-06 17:55] LABS: Urine Appearance Cloudy; Urine Bacteria Absent (Absent); Urine Bilirubin Negative (Negative); Urine Blood 3+ (Negative); Urine Color Yellow; Urine Glucose Negative (Negative); Urine Ketones 2+ (Negative); Urine Nitrite Positive (Negative); Urine Protein Negative (Negative); Urine Red Blood Cell 3+(>10/hpf) (Absent); Urine Specific Gravity > 1.060 (1.010-1.030); Urine Squamous Epithelial Cell Present (Absent); Urine Urobilinogen Negative (Negative); Urine White Blood Cell 2+(11-20/hpf) (Absent)
[2018-12-06] MEDS: NS 0.9% 1000 ML** 1,000 ML IV SCH (18:40)
[2018-12-06] MEDS: Acetaminophen TAB* 325 MG PO PRN (18:40)
[2018-12-06] MEDS: Ondansetron INJ* 2 MG/ML VIAL IV PRN ×2 (18:40→23:03)
--- NOTE | 2018-12-06 19:00 | HP ---
HISTORY AND PHYSICAL: DATE OF ADMISSION: 12/06/18 PROVIDER: Jammie Montes NP ATTENDING PHYSICIAN: Dr. Chawla * (report dictated by Jammie Montes NP). PRIMARY CARE PROVIDER: No PCP. CHIEF COMPLAINT: Shortness of breath and nausea and vomiting. HISTORY OF PRESENT ILLNESS: Ms. Loera is a 43-year-old female with a past medical history of current long-term tobacco abuse, history of COPD, depression and history of TIA, who presented to the emergency department today with shortness of breath. The patient reports on Friday she developed nausea and vomiting, reporting she first developed a stomach ache, then later in the evening on Friday, she started to experience nausea with vomiting through until Friday morning as well as intermittently throughout the day. She reports this morning she was still vomiting and she presented to the emergency department for both nausea and vomiting and shortness of breath. She reports that today even though she has vomited a couple times, she feels like this is slowly resolving. In the emergency department, she was found to have an O2 sat of 82% on initial evaluation and was placed on 10 L nasal cannula. She had an ABG that showed a pO2 of 78 and a pCO2 of 47. She reports she has had an increase in cough with increased sputum production and wheezing. She reports her sputum to be yellow. She does not remember aspirating, but states it is possible. She denies any fevers, chills, body aches. Her influenza A and B are negative in the emergency department. Currently, she reports she is feeling better after nebulizer treatment and oxygen therapy as well as she was given Solu-Medrol 125 mg in the ER. The patient was also found to have an elevated troponin of 0.14 with repeat troponin of 0.15. No found EKG changes. She reports that she recently underwent a cardiac exercise stress test at [facility], which placed her at low risk. The patient also reports she has some abnormal uterine bleeding and which she had her period 2 weeks ago and now is having some intermittent spotting, but states the flow was not heavy; however, this is abnormal. She reports she cannot remember when her last Pap was. She reports some burning with urination. Denies pelvic/flank pain. Denies any hematuria. No increased frequency. Denies pain with sex. No abnormal vaginal discharge or odor. Currently denies shortness of breath or chest pain and states that overall she feels much better. PAST MEDICAL HISTORY: 1. COPD. 2. Current tobacco use, smokes approximately pack a day. 3. Depression. 4. Hyperlipidemia. 5. History of TIA. PAST SURGICAL HISTORY: PDA repair at age 5. CURRENT HOME MEDICATIONS: 1. Albuterol 2.5 mg/3 mL neb INH q.6 hours p.r.n. 2. Ellipta 1 puff INH daily. 3. Lipitor 10 mg p.o. at bedtime. 4. Aspirin 81 mg p.o. daily. ALLERGIES: No known allergies. FAMILY HISTORY: Her mother in her 50s of a CVA. Father in his 60s from CAD. SOCIAL HISTORY: One pack of cigarettes a day, smoking since she was a teenager. Rare alcohol use. No recreational drug use. She lives with her boyfriend. She lists her sister, Ly, as her healthcare proxy. She is a full code. REVIEW OF SYSTEMS: A 14-point review of systems was performed. All the pertinent positives and negatives are mentioned in the history of present illness. Otherwise are negative. PHYSICAL EXAMINATION GENERAL APPEARANCE: A 43-year-old female, sitting up in the emergency department stretcher, in no acute distress. VITAL SIGNS: Temperature 98.1, heart rate 77, respirations 15, O2 sat 94% on 6 L nasal cannula, and blood pressure 106/73. HEENT: Head is normocephalic and atraumatic. Pupils are equal and reactive to light. Oropharynx is clear. Dry mucous membranes. NECK: Supple. No JVD. LUNGS: Rhonchi bilaterally with expiratory wheezing. CARDIAC: S1, S2. Regular rate and rhythm. No murmur, rub, or gallop appreciated. No lower extremity edema noted. ABDOMEN: Soft, nontender, nondistended. Normal bowel sounds throughout. Slightly obese. EXTREMITIES: No clubbing, cyanosis, or edema noted. NEURO: Alert and oriented x3. Cranial nerves II through XII are grossly intact. No focal deficits noted. DIAGNOSTIC STUDIES/LAB DATA: WBC 6.7, RBC 5.12, HGB 15.9, HCT 47, MCV 92, MCH 31, MCHC 34, RDW 14, platelet count 137. INR 1.02. Sodium 138, potassium 3.7, chloride 101, carbon dioxide 30, anion gap 7, BUN 8, creatinine 0.45, glucose 94 , lactic acid 0.9, calcium 9.5. Total bilirubin 0.40, AST 21, ALT 17, alkaline phosphatase 83. Total creatine kinase 60; CK-MB 1.5; myoglobin 24.2; troponin 0.14, second troponin 0.15; C-reactive protein 8.89; BNP 17. Total protein 7.1 , albumin 4.3. Amylase 17, lipase 15. Beta hCG negative. Blood gas; pH 7.39, pCO2 of 47, pO2 of 78, HCO3 of 27, O2 sat 96%, base excess 2.8. Influenza A and B negative. EKG: Sinus rhythm with a rate of 89. In comparison to prior EKG, no acute changes. CTA chest, abdomen and pelvis, impression: 1. Slightly limited exam. No evidence for pulmonary embolism. 2. No evidence for acute finding in the abdomen or pelvis. 3. Hepatic stenosis. ASSESSMENT AND PLAN: Ms. Loera is a 43-year-old female with a past medical history of current tobacco abuse, chronic obstructive pulmonary disease , history of transient ischemic attack, hyperlipidemia, who presents to the emergency department today with a complaint of nausea, vomiting, and shortness of breath. 1. Nausea and vomiting. I suspect the patient's nausea and vomiting are from a viral gastroenteritis; however, this could be secondary to possible urinary tract infection, which I am awaiting for at this time. Her nausea and vomiting seem to be improving at this time. CT of the chest, abdomen and pelvis is negative for acute pathology. Zofran p.r.n. We will give her normal saline at 125 mL an hour as she appears slightly dehydrated. 2. Indeterminate troponin. Initial troponins are 0.14 and 0.15. She has no chest pain. She recently had a cardiac nuclear exercise stress test at [facility] , which she and her boyfriend report was low risk. I have placed an order to obtain these records. We will trend a third cardiac enzyme, but I have low suspicion for acute coronary syndrome. We will continue the aspirin. 3. Shortness of breath with acute hypoxic respiratory failure. On her ABG, she was slightly retaining CO2 and slightly hypoxic. She was 82% on room air when she arrived to the emergency department. It is possible that she aspirated ; however, I do think she also has a chronic obstructive pulmonary disease exacerbation due to her increased sputum production, coarse rhonchi and wheezes. I will continue her on prednisone 40 mg p.o. daily as well as start her on ceftriaxone 1 g IV q.24 hours and azithromycin 500 mg IV q.24 hours. We will try to obtain sputum culture. Blood cultures have been sent. 4. Abnormal uterine bleeding - this is reported as spotting/breakthrough bleeding. I will add on a GC/Chlamydia to the urine. HCG is negative. I will also add on thyroid panel. She will need to follow up as an outpatient for Pap which was discussed with the patient. She did not have any abnormals pathology noted on CT. She should undergo an TVUS as an outpatient on day 4-5 of her cycle. 4. Tobacco abuse. Smoking cessation. 5. DVT prophylaxis: Heparin subcu. 6. Code status: Full code. 7. Hospital status: Observation. TIME SPENT: Approximately 60 minutes was spent on this admission with greater than 50% at the bedside. JAMMIE MONTES, AMRITA [id number]/CPS #: [id number] MIKE
[2018-12-06 19:28] LABS: Troponin I 0.14 ng/mL (<0.04)
[2018-12-06] MEDS: Atorvastatin* 10 MG TAB PO SCH (22:00)
[2018-12-06] MEDS: Heparin VIAL(*) 5000 UNITS/ML VIAL (FIVE THOUSAND) SUBCUT SCH (22:00)
[2018-12-07] MEDS: Acetaminophen TAB* 325 MG PO PRN ×3 (03:15→22:01)
[2018-12-07] MEDS ORDERED: Albuterol 2.5 MG/3 ML NEB.SOL* (0.083%) INH PRN (05:13)
[2018-12-07] MEDS ORDERED: Mouth Piece, Nicotine* 1 EACH CARTRIDGE INH PRN (05:17)
[2018-12-07] MEDS: Heparin VIAL(*) 5000 UNITS/ML VIAL (FIVE THOUSAND) SUBCUT SCH ×3 (05:47→21:36)
[2018-12-07] MEDS: Nicotine Inhaler* 10 MG AMP INH PRN ×4 (05:48→20:09)
[2018-12-07 06:50] LABS: ABS Basophils 0.1 10^3/ul (0-0.2); ABS Eosinophils 0 10^3/ul (0-0.6); ABS Lymphocytes 1.4 10^3/ul (1.0-4.8); ABS Monocytes 0.6 10^3/ul (0-0.8); ABS Neutrophils 8.7 10^3/ul (1.5-7.7); ABS Nucleated RBC 0 10^3/ul; Eosinophil % 0 %; Hematocrit 39 % (33-41); Hemoglobin 13.3 g/dL (12.0-16.0); Lymphocyte % 12.5 %; Mean Corpuscular HGB Conc 34 g/dL (31-36); Mean Corpuscular Hemoglobin 31 pg (27-31); Mean Corpuscular Volume 92 fL (80-97); Mean Platelet Volume 9.5 fL (7.4-10.4); Nucleated Red Blood Cells % 0; Platelet Count 126 10^3/uL (150-450); Red Blood Count 4.26 10^6 /uL (3.70-4.87); Red Cell Distribution Width 14 % (10.5-15); White Blood Count 10.8 10^3/uL (3.5-10.8)
[2018-12-07 07:06] LABS: BUN/Creatinine Ratio 15.1 (8-20); Calcium 8.7 mg/dL (8.6-10.3); EGFR African American 152.3 (>60); EGFR Non-African American 125.9 (>60); Potassium 4.2 mmol/L (3.5-5.0)
[2018-12-07] MEDS: Tiotropium CAP.INH* CAP.INH/18 MCG (USE ORDER SET !) INH SCH (08:02)
[2018-12-07] MEDS: NS 0.9% 1000 ML** 1,000 ML IV SCH (08:12)
[2018-12-07] MEDS ORDERED: Umeclidinium 62.5 MDI(NF) MDI INH SCH (09:00)
[2018-12-07] MEDS ORDERED: Spiriva Inhaler DEVICE* 1 EACH DEVICE INH ONE (09:00)
[2018-12-07] MEDS: Aspirin 81 mg CHEW TAB* 81 MG TAB.CHEW PO SCH (10:10)
[2018-12-07] MEDS: predniSONE TAB* 20 MG PO SCH (10:16)
[2018-12-07 10:24] LABS: TSH (Thyroid Stimulating Horm) 0.28 mcIU/mL (0.34-5.60)
[2018-12-07 13:38] LABS: Neisseria gonorrhoeae (GC) RNA Negative (Negative)
--- NOTE | 2018-12-07 13:44 | PN ---
Subjective Date of Service: 12/07/18 Interval History: Patient reports she is feeling improved. Her cough is less frequent, which she does have at baseline. She is able to bring up white sputum, which reportedly is also the case at baseline. She states her nausea is resolved. Her chest pain is still present in the central chest, though is much improved. She does still occasionally feel short of breath. She denies abd pain, vomiting, diarrhea. She asks if she will be able to return to work. Objective Active Medications: Acetaminophen (Tylenol Tab*) 650 mg PO Q6H PRN PRN Reason: FEVER/PAIN Last Admin: 12/07/18 09:19 Dose: 650 mg Albuterol (Ventolin 2.5 Mg/3 Ml Neb.Bharti*) 2.5 mg INH Q4H PRN PRN Reason: SOB/WHEEZING Last Admin: 12/07/18 05:36 Dose: 2.5 mg Aspirin (Aspirin 81 Mg Chew Tab*) 81 mg PO DAILY [facility] Last Admin: 12/07/18 10:10 Dose: 81 mg Atorvastatin Calcium (Lipitor*) 10 mg PO BEDTIME [facility] Last Admin: 12/06/18 22:00 Dose: 10 mg Device (Nicotine Mouth Piece*) 1 each INH .USE W/ CARTRIDGE PRN PRN Reason: WITHDRAWAL - NICOTINE Last Admin: 12/07/18 05:47 Dose: 1 each Heparin Sodium (Porcine) (Heparin Vial(*)) 5,000 units SUBCUT Q8HR [facility] Last Admin: 12/07/18 13:20 Dose: 5,000 units Azithromycin (Zithromax 500 Mg/250 Ml) 500 mg in 250 mls @ 250 mls/hr IVPB Q24H [facility] Last Admin: 12/06/18 18:08 Dose: 250 mls/hr Ceftriaxone Sodium 1 gm/ (Sodium Chloride) 50 mls @ 200 mls/hr IVPB Q24H [facility] Last Admin: 12/06/18 17:41 Dose: 200 mls/hr Sodium Chloride (Ns 0.9% 1000 Ml) 1,000 mls @ 125 mls/hr IV PER RATE [facility] Stop: 12/08/18 01:14 Last Admin: 12/07/18 08:12 Dose: 125 mls/hr Nicotine (Nicotine Inhaler*) 10 mg INH Q2H PRN PRN Reason: CRAVING Last Admin: 12/07/18 09:19 Dose: 10 mg Ondansetron HCl (Zofran Inj*) 4 mg IV Q4H PRN PRN Reason: NAUSEA Last Admin: 12/06/18 23:03 Dose: 4 mg Prednisone (Deltasone Tab*) 40 mg PO DAILY [facility] Last Admin: 12/07/18 10:16 Dose: 40 mg Tiotropium [place] (Spiriva Cap.Inh*) 1 cap INH DAILY [facility] Last Admin: 12/07/18 08:02 Dose: 1 cap Vital Signs - 8 hr 12/07/18 12/07/18 12/07/18 05:39 07:17 11:54 Temperature 97.8 F 98.4 F Pulse Rate 78 83 74 Respiratory 16 16 16 Rate Blood Pressure 109/56 104/57 (mmHg) O2 Sat by Pulse 98 92 96 Oximetry Oxygen Devices in Use Now: Simple Face Mask - 6 L, OxyMask Appearance: Middle aged female, appears older than stated age, appearing in NAD Eyes: No Scleral Icterus, PERRLA Ears/Nose/Mouth/Throat: Mucous Membranes Moist Neck: - - neck is supple, no JVD Respiratory: Symmetrical Chest Expansion and Respiratory Effort, - - Expiratory wheezing bilaterally with rhonchi in the lower lung mckeon Cardiovascular: NL Sounds; No Murmurs; No JVD, RRR Abdominal: - - abdomen is soft, nontender, nondistended; no masses Extremities: No Edema, No Clubbing, Cyanosis, - - neg calf tenderness Skin: No Rash or Ulcers, - - skin is warm, dry, intact Neurological: Alert and Oriented x 3, NL Muscle Strength and Tone Result Diagrams: 12/07/18 06:38 12/07/18 06:38 Additional Lab and Data: Lab Results 12/06/18 12/06/18 12/06/18 Range/Units 11:07 11:20 11:20 WBC 6.7 (3.5-10.8) 10^3/uL RBC 5.12 H (3.70-4.87) 10^6 /uL Hgb 15.9 (12.0-16.0) g/dL Hct 47 H (33-41) % MCV 92 (80-97) fL MCH 31 (27-31) pg MCHC 34 (31-36) g/dL RDW 14 (10.5-15) % Plt Count 137 L (150-450) 10^3/uL MPV 10.0 (7.4-10.4) fL Neut % (Auto) 74.6 % Lymph % (Auto) 17.6 % Bremer % (Auto) 5.9 % Eos % (Auto) 1.0 % Baso % (Auto) 0.9 % Absolute Neuts (auto) 5.0 (1.5-7.7) 10^3/ul Absolute Lymphs (auto) 1.2 (1.0-4.8) 10^3/ul Absolute Monos (auto) 0.4 (0-0.8) 10^3/ul Absolute Eos (auto) 0.1 (0-0.6) 10^3/ul Absolute Basos (auto) 0.1 (0-0.2) 10^3/ul Absolute Nucleated RBC 0 10^3/ul Nucleated RBC % 0.1 INR (Anticoag Therapy) (0.77-1.02) ABG pH 7.39 (7.35-7.45) ABG pCO2 47 H (35-45) mmHg ABG pO2 78 L (80-100) mmHg ABG HCO3 27.0 (19-31) mmol/L ABG O2 Saturation 96.9 (94.0-98.0) % ABG Base Excess 2.8 H (-2.0-2.0) mmol/L Sodium 138 (135-145) mmol/L Potassium 3.7 (3.5-5.0) mmol/L Chloride 101 (101-111) mmol/L Carbon Dioxide 30 (22-32) mmol/L Anion Gap 7 (2-11) mmol/L BUN 8 (6-24) mg/dL Creatinine 0.54 (0.51-0.95) mg/dL Est GFR ( Amer) 149.1 (>60) Est GFR (Non-Af Amer) 123.2 (>60) BUN/Creatinine Ratio 14.8 (8-20) Glucose 94 (70-100) mg/dL Lactic Acid (0.5-2.0) mmol/L Calcium 9.5 (8.6-10.3) mg/dL Total Bilirubin 0.40 (0.2-1.0) mg/dL AST 21 (13-39) U/L ALT 17 (7-52) U/L Alkaline Phosphatase 83 (34-104) U/L Myoglobin 24.2 (14.3-65.8) ng/mL Troponin I 0.14 H* (<0.04) ng/mL C-Reactive Protein 8.89 H (<8.01) mg/L B-Natriuretic Peptide (<=100) pg/mL Total Protein 7.1 (6.4-8.9) g/dL Albumin 4.3 (3.2-5.2) g/dL Globulin 2.8 (2-4) g/dL Albumin/Globulin Ratio 1.5 (1-3) Beta HCG, Quant < 0.60 mIU/mL Influenza A (Rapid) (Negative) Influenza B (Rapid) (Negative) 12/06/18 12/06/18 12/06/18 Range/Units 11:20 11:20 11:20 WBC (3.5-10.8) 10^3/uL RBC (3.70-4.87) 10^6 /uL Hgb (12.0-16.0) g/dL Hct (33-41) % MCV (80-97) fL MCH (27-31) pg MCHC (31-36) g/dL RDW (10.5-15) % Plt Count (150-450) 10^3/uL MPV (7.4-10.4) fL Neut % (Auto) % Lymph % (Auto) % Bremer % (Auto) % Eos % (Auto) % Baso % (Auto) % Absolute Neuts (auto) (1.5-7.7) 10^3/ul Absolute Lymphs (auto) (1.0-4.8) 10^3/ul Absolute Monos (auto) (0-0.8) 10^3/ul Absolute Eos (auto) (0-0.6) 10^3/ul Absolute Basos (auto) (0-0.2) 10^3/ul Absolute Nucleated RBC 10^3/ul Nucleated RBC % INR (Anticoag Therapy) 1.02 (0.77-1.02) ABG pH (7.35-7.45) ABG pCO2 (35-45) mmHg ABG pO2 (80-100) mmHg ABG HCO3 (19-31) mmol/L ABG O2 Saturation (94.0-98.0) % ABG Base Excess (-2.0-2.0) mmol/L Sodium (135-145) mmol/L Potassium (3.5-5.0) mmol/L Chloride (101-111) mmol/L Carbon Dioxide (22-32) mmol/L Anion Gap (2-11) mmol/L BUN (6-24) mg/dL Creatinine (0.51-0.95) mg/dL Est GFR ( Amer) (>60) Est GFR (Non-Af Amer) (>60) BUN/Creatinine Ratio (8-20) Glucose (70-100) mg/dL Lactic Acid 0.9 (0.5-2.0) mmol/L Calcium (8.6-10.3) mg/dL Total Bilirubin (0.2-1.0) mg/dL AST (13-39) U/L ALT (7-52) U/L Alkaline Phosphatase (34-104) U/L Myoglobin (14.3-65.8) ng/mL Troponin I (<0.04) ng/mL C-Reactive Protein (<8.01) mg/L B-Natriuretic Peptide 17 (<=100) pg/mL Total Protein (6.4-8.9) g/dL Albumin (3.2-5.2) g/dL Globulin (2-4) g/dL Albumin/Globulin Ratio (1-3) Beta HCG, Quant mIU/mL Influenza A (Rapid) (Negative) Influenza B (Rapid) (Negative) 12/06/18 Range/Units 11:52 WBC (3.5-10.8) 10^3/uL RBC (3.70-4.87) 10^6 /uL Hgb (12.0-16.0) g/dL Hct (33-41) % MCV (80-97) fL MCH (27-31) pg MCHC (31-36) g/dL RDW (10.5-15) % Plt Count (150-450) 10^3/uL MPV (7.4-10.4) fL Neut % (Auto) % Lymph % (Auto) % Bremer % (Auto) % Eos % (Auto) % Baso % (Auto) % Absolute Neuts (auto) (1.5-7.7) 10^3/ul Absolute Lymphs (auto) (1.0-4.8) 10^3/ul Absolute Monos (auto) (0-0.8) 10^3/ul Absolute Eos (auto) (0-0.6) 10^3/ul Absolute Basos (auto) (0-0.2) 10^3/ul Absolute Nucleated RBC 10^3/ul Nucleated RBC % INR (Anticoag Therapy) (0.77-1.02) ABG pH (7.35-7.45) ABG pCO2 (35-45) mmHg ABG pO2 (80-100) mmHg ABG HCO3 (19-31) mmol/L ABG O2 Saturation (94.0-98.0) % ABG Base Excess (-2.0-2.0) mmol/L Sodium (135-145) mmol/L Potassium (3.5-5.0) mmol/L Chloride (101-111) mmol/L Carbon Dioxide (22-32) mmol/L Anion Gap (2-11) mmol/L BUN (6-24) mg/dL Creatinine (0.51-0.95) mg/dL Est GFR ( Amer) (>60) Est GFR (Non-Af Amer) (>60) BUN/Creatinine Ratio (8-20) Glucose (70-100) mg/dL Lactic Acid (0.5-2.0) mmol/L Calcium (8.6-10.3) mg/dL Total Bilirubin (0.2-1.0) mg/dL AST (13-39) U/L ALT (7-52) U/L Alkaline Phosphatase (34-104) U/L Myoglobin (14.3-65.8) ng/mL Troponin I (<0.04) ng/mL C-Reactive Protein (<8.01) mg/L B-Natriuretic Peptide (<=100) pg/mL Total Protein (6.4-8.9) g/dL Albumin (3.2-5.2) g/dL Globulin (2-4) g/dL Albumin/Globulin Ratio (1-3) Beta HCG, Quant mIU/mL Influenza A (Rapid) Negative (Negative) Influenza B (Rapid) Negative (Negative) Microbiology and Other Data: Microbiology 12/06/18 12:30 Aerobic Blood Culture - Preliminary Blood Venous No Growth Day 1 Anaerobic Blood Culture - Preliminary No Growth Day 1 12/06/18 11:25 Aerobic Blood Culture - Preliminary Blood Venous No Growth Day 1 Anaerobic Blood Culture - Preliminary No Growth Day 1 12/07/18 03:14 Gram Stain - Final Sputum Expectorated Assess/Plan/Problems-Billing Assessment: - Patient Problems (1) Acute respiratory failure with hypoxia Code(s): J96.01 - ACUTE RESPIRATORY FAILURE WITH HYPOXIA SNOMED Code(s): 22659005 Comment: -Patient arrived to ED with O2 of 83%, does not use oxygen at home -PE ruled out with CTA -likely due to COPD exacerbation - O2 sat to 92% on 6L this morning, however patient was wearing simple face mask which appears less efficient at delivering O2, switching to NC and continuing to monitor - SOB feels symptomatically improved per patient (2) COPD exacerbation Code(s): J44.1 - CHRONIC OBSTRUCTIVE PULMONARY DISEASE W (ACUTE) EXACERBATION SNOMED Code(s): 151266002 Comment: - Hypoxia continues despite 6L oxygen as described above, no O2 requirements at home - adding dulera, scheduling duonebs to q6hrs while awake - continue prednisone 40mg po, spiriva (uses incruse ellipta at home), prn ventolin - discontinuing ceftriaxone and azithromycin as patient doesn't need coverage, CTA was without pnuemonia - sputum culture is pending and will restart abx if necessary (3) Demand ischemia of myocardium Code(s): I24.8 - OTHER FORMS OF ACUTE ISCHEMIC HEART DISEASE SNOMED Code(s): 129225733 Comment: -pt with elevated troponin 0.14 -> 0.15 -> 0.14 without EKG changes; likely a type 2 NSTEMI as patient arrived to ED with O2 sat of 83% -pt had stress test recently, working on outpatient records from PCP; [facility] has no record of this patient -pt does still have lingering chest "tightness" which is likely related to her COPD exacerbation (4) Abnormal uterine bleeding Code(s): N93.9 - ABNORMAL UTERINE AND VAGINAL BLEEDING, UNSPECIFIED SNOMED Code(s): 05102620025156 Comment: - no complaints today - possibly related to hyperthyroidism as TSH is mildly low - recommend further outpatient workup at discharge (5) Tobacco abuse Code(s): Z72.0 - TOBACCO USE SNOMED Code(s): 911302571 Comment: -nicotine inhaler ordered (6) Hx of transient ischemic attack (TIA) Code(s): Z86.73 - PRSNL HX OF TIA (TIA), AND CEREB INFRC W/O RESID DEFICITS SNOMED Code(s): 581254148 Comment: -continue home ASA (7) DVT prophylaxis Code(s): JVF7436 - SNOMED Code(s): 423988770 Comment: - continue TID subQ heparin (8) Full code status Code(s): Z78.9 - OTHER SPECIFIED HEALTH STATUS SNOMED Code(s): 042815782 Comment:
[2018-12-07] MEDS ORDERED: Albuterol 2.5 MG/3 ML NEB.SOL* (0.083%) INH ONE (14:58)
[2018-12-07] MEDS: Albuterol 2.5 MG/3 ML NEB.SOL* (0.083%) INH SCH ×2 (15:03→19:17)
[2018-12-07] MEDS: Mometasone/Formoter 100/5 MDI INH SCH (19:17)
[2018-12-07] MEDS: Atorvastatin* 10 MG TAB PO SCH (20:09)
[2018-12-07] MEDS ORDERED: Calcium Carbonate CHEW TAB* 500 MG (TUMS) PO PRN (21:50)
[2018-12-08] MEDS: Albuterol 2.5 MG/3 ML NEB.SOL* (0.083%) INH SCH ×4 (01:33→20:46)
[2018-12-08] MEDS: Heparin VIAL(*) 5000 UNITS/ML VIAL (FIVE THOUSAND) SUBCUT SCH ×3 (06:06→21:46)
[2018-12-08 06:59] LABS: ABS Basophils 0.2 10^3/ul (0-0.2); ABS Eosinophils 0 10^3/ul (0-0.6); ABS Lymphocytes 2.4 10^3/ul (1.0-4.8); ABS Monocytes 0.6 10^3/ul (0-0.8); ABS Neutrophils 7.4 10^3/ul (1.5-7.7); ABS Nucleated RBC 0 10^3/ul; Eosinophil % 0.2 %; Hematocrit 35 % (33-41); Hemoglobin 11.7 g/dL (12.0-16.0); Lymphocyte % 22.4 %; Mean Corpuscular HGB Conc 34 g/dL (31-36); Mean Corpuscular Hemoglobin 32 pg (27-31); Mean Corpuscular Volume 93 fL (80-97); Mean Platelet Volume 9.9 fL (7.4-10.4); Nucleated Red Blood Cells % 0; Platelet Count 115 10^3/uL (150-450); Red Blood Count 3.72 10^6 /uL (3.70-4.87); Red Cell Distribution Width 14 % (10.5-15); White Blood Count 10.6 10^3/uL (3.5-10.8)
[2018-12-08 07:32] LABS: BUN/Creatinine Ratio 15.7 (8-20); Calcium 8.8 mg/dL (8.6-10.3); EGFR African American 159.3 (>60); EGFR Non-African American 131.6 (>60); Potassium 3.9 mmol/L (3.5-5.0)
[2018-12-08] MEDS: predniSONE TAB* 20 MG PO SCH ×2 (07:45→21:45)
[2018-12-08] MEDS: Aspirin 81 mg CHEW TAB* 81 MG TAB.CHEW PO SCH (07:45)
[2018-12-08] MEDS: Mometasone/Formoter 100/5 MDI INH SCH ×2 (08:10→20:46)
[2018-12-08] MEDS: Tiotropium CAP.INH* CAP.INH/18 MCG (USE ORDER SET !) INH SCH (08:11)
[2018-12-08] MEDS ORDERED: Regadenoson* 0.4 MG/5 ML SYRINGE ONE (09:53)
--- NOTE | 2018-12-08 12:50 | ECHO ---
Patient: CLEMENTE DOS SANTOS [facility] Rec#: [id number] : 1975 Date: 12/08/2018 Age: 43y Height: 168 cm / 66.1 in Weight: 67 kg / 147.7 lbs Sex: F BSA: 1.76 Room#: 453 Admit Date#: 12/07/2018 Type: Inpatient Referring: ADAL Reading: Pedro Ruiz MD Nuclear Equipment Test Engineer: Tania Song RDCS,RDMS Transthoracic Echocardiogram Indication: CP BP: 128/66 HR: 73 Rhythm: NSR Findings History: Smoker, COPD, TIA, HLD, PDA (repaired) Technical Comments: The study quality is good. Left Ventricle: The left ventricular chamber size is normal. There is no left ventricular hypertrophy. Global left ventricular wall motion and contractility are within normal limits. There is normal left ventricular systolic function. The estimated ejection fraction is 60-65%. Normal left ventricular diastolic filling is observed. Left Atrium: The left atrial chamber size is normal. Right Ventricle: The right ventricular chamber size and systolic function are within normal limits. Right Atrium: The right atrial cavity size is normal. Aortic Valve: There is no evidence of aortic valve thickening. There is no evidence of aortic regurgitation. There is no evidence of aortic stenosis. Mitral Valve: The mitral valve leaflets appear normal. There is a trace of mitral regurgitation. There is no evidence of mitral stenosis. Tricuspid Valve: The tricuspid valve leaflets are normal. There is trace tricuspid regurgitation. No pulmonary hypertension is noted. Pulmonic Valve: The pulmonic valve structure is not well visualized. Pericardium: There is no significant pericardial effusion. Aorta: The ascending aorta is not well visualized. There is no dilatation of the aortic arch. The aortic root is normal in size. Pulmonary Artery: The main pulmonary artery is not well visualized. Venous: The inferior vena cava is dilated. There is less than 50% respiratory change in the inferior vena cava dimension. Conclusions There is a trace of mitral regurgitation. There is trace tricuspid regurgitation. Global left ventricular wall motion and contractility are within normal limits. The estimated ejection fraction is 60-65%. Similar to 10/2006. Measurements Name Value Normal Range RVIDd (AP) 2D 2.2 cm (0.9 - 2.6) RVDdMajor (2D) 2.9 cm (2.2 - 4.4) RAd ISD 4CH 4.2 cm (3.4 - 4.9) RA (A4C)W 3.8 cm (2.9 - 4.6) IVSd (2D) 0.8 cm (0.6 - 1) LVPWd (2D) 0.9 cm (0.6 - 1) LVIDd (2D) 4.6 cm (3.6 - 5.4) LVIDs (2D) 3.1 cm - LV FS (2D) 32 % (25 - 45) Aortic Annulus 2 cm (1.4 - 2.6) Ao root diameter (2D) 2.7 cm (2.1 - 3.5) Aortic arch 2.8 cm (1.8 - 3.4) LA dimension (AP) 2D 3.1 cm (2.3 - 3.8) LAd ISD 4CH 4.4 cm (2.9 - 5.3) LA ISD 4CH W 3.3 cm (2.5 - 4.5) Name Value Normal Range LA ESV BP (A/L) index 18 ml/m2 - Name Value Normal Range MV E-wave Vmax 0.9 m/sec - MV deceleration time 158 msec - MV A-wave Vmax 0.6 m/sec - MV E:A ratio 1.5 ratio - P. vein S-wave Vmax 0.5 m/sec - P. vein D-wave Vmax 0.7 m/sec - P. vein S:D Vmax ratio 0.7 ratio - P. vein A-wave duration 92 msec - LV septal e' Vmax 0.13 m/sec - LV lateral e' Vmax 0.14 m/sec - LV E:e' septal ratio 7 ratio - LV E:e' lateral ratio 6 ratio - Name Value Normal Range AV Vmax 1.4 m/sec - AV VTI 27 cm - AV peak gradient 8 mmHg - AV mean gradient 4 mmHg - LVOT Vmax 1.2 m/sec - LVOT VTI 23 cm - LVOT peak gradient 5 mmHg - LVOT mean gradient 3 mmHg - DEA Vmax 1.1 m/sec - Name Value Normal Range TR Vmax 1.9 m/sec - TR peak gradient 15 mmHg - RAP 3 mmHg - RVSP 18 mmHg - IVC diameter 2.6 cm - Name Value Normal Range PV Vmax 1 m/sec - PV peak gradient 4 mmHg -
--- NOTE | 2018-12-08 13:55 | PN ---
Subjective Date of Service: 12/08/18 Interval History: Patient feeling improved today. Shortness of breath is improved and chest tightness is improved at time of evaluation. Still has a cough with white sputum but this is her baseline. She was on 2L NC when she left the floor for her stress test and was increased to 4L due to shortness of breath at stress test. She otherwise is feeling well except noting menstrual cramps. She has chronic right sided back pain from injury at work. Denies fever/chills. Patient reported to nursing approx 6 AM today that she "can't taste anything." No complaints at time of evaluation. Of note, she reports when she provided urine sample in the ED she did not provide a clean catch. Objective Active Medications: Acetaminophen (Tylenol Tab*) 650 mg PO Q6H PRN PRN Reason: FEVER/PAIN Last Admin: 12/07/18 22:01 Dose: 650 mg Albuterol (Ventolin 2.5 Mg/3 Ml Neb.Bharti*) 2.5 mg INH [id number] AWAKE [facility] Last Admin: 12/08/18 08:10 Dose: 2.5 mg Aspirin (Aspirin 81 Mg Chew Tab*) 81 mg PO DAILY [facility] Last Admin: 12/08/18 07:45 Dose: 81 mg Atorvastatin Calcium (Lipitor*) 10 mg PO BEDTIME [facility] Last Admin: 12/07/18 20:09 Dose: 10 mg Calcium Carbonate (Tums*) 500 mg PO Q4H PRN PRN Reason: INDIGESTION Last Admin: 12/07/18 22:02 Dose: 500 mg Device (Nicotine Mouth Piece*) 1 each INH .USE W/ CARTRIDGE PRN PRN Reason: WITHDRAWAL - NICOTINE Last Admin: 12/07/18 05:47 Dose: 1 each Heparin Sodium (Porcine) (Heparin Vial(*)) 5,000 units SUBCUT Q8HR [facility] Last Admin: 12/08/18 13:20 Dose: 5,000 units Mometasone Furoate/Formoterol Fumar (Dulera 100/5 Mdi*) 2 puff INH BID [facility] Last Admin: 12/08/18 08:10 Dose: 2 puff Nicotine (Nicotine Inhaler*) 10 mg INH Q2H PRN PRN Reason: CRAVING Last Admin: 12/07/18 20:09 Dose: 10 mg Ondansetron HCl (Zofran Inj*) 4 mg IV Q4H PRN PRN Reason: NAUSEA Last Admin: 12/06/18 23:03 Dose: 4 mg Prednisone (Deltasone Tab*) 40 mg PO DAILY [facility] Last Admin: 12/08/18 07:45 Dose: 40 mg Tiotropium [place] (Spiriva Cap.Inh*) 1 cap INH DAILY [facility] Last Admin: 12/08/18 08:11 Dose: 1 cap Vital Signs - 8 hr 12/08/18 12/08/18 12/08/18 07:08 07:22 08:08 Temperature 97.8 F Pulse Rate 61 81 Respiratory 20 16 16 Rate Blood Pressure 128/66 (mmHg) O2 Sat by Pulse 97 98 Oximetry 12/08/18 11:10 Temperature Pulse Rate 69 Respiratory 16 Rate Blood Pressure 117/65 (mmHg) O2 Sat by Pulse 98 Oximetry Oxygen Devices in Use Now: Nasal Cannula - 2L Appearance: White female sittting upright in hospital bed, appears older than stated age, appearing in NAD Eyes: No Scleral Icterus, PERRLA Ears/Nose/Mouth/Throat: Mucous Membranes Moist, - - Edentulous Neck: No Thyroid Enlargement, Masses - Neck is supple and without JVD, - - Nec Respiratory: Symmetrical Chest Expansion and Respiratory Effort, - - expiratory wheezing auscultated anteriorly and in lung bases Cardiovascular: NL Sounds; No Murmurs; No JVD, RRR Abdominal: - - Abdomen soft, nontender, nondistended Extremities: No Edema, No Clubbing, Cyanosis, - - Neg calf tenderness Skin: No Rash or Ulcers, - - Skin is warm, dry, intact Neurological: Alert and Oriented x 3, NL Muscle Strength and Tone Result Diagrams: 12/08/18 06:53 12/08/18 06:53 Additional Lab and Data: Lab Results Microbiology and Other Data: Microbiology 12/06/18 12:30 Aerobic Blood Culture - Preliminary Blood Venous No Growth Day 1 Anaerobic Blood Culture - Preliminary No Growth Day 1 12/06/18 11:25 Aerobic Blood Culture - Preliminary Blood Venous No Growth Day 1 Anaerobic Blood Culture - Preliminary No Growth Day 1 12/07/18 03:14 Gram Stain - Final Sputum Expectorated Assess/Plan/Problems-Billing Assessment: 42 yo white female with PMHx COPD, hx of TIA, depression, and tobacco use presents with shortness of breath, increased sputum production, and chest tightness. In the ED she was found to have O2 sat to 83% and a positive troponin which peaked at 0.15 without EKG changes. - Patient Problems (1) Acute respiratory failure with hypoxia Code(s): J96.01 - ACUTE RESPIRATORY FAILURE WITH HYPOXIA SNOMED Code(s): 63470829 Comment: -Patient arrived to ED with O2 of 83%, does not use oxygen at home -PE ruled out with CTA -likely due to COPD exacerbation - NC at 2L O2 at time of evaluation, will continue to wean although required more oxygen at stress test this morning due to SOB (2) COPD exacerbation Code(s): J44.1 - CHRONIC OBSTRUCTIVE PULMONARY DISEASE W (ACUTE) EXACERBATION SNOMED Code(s): 623042910 Comment: - no O2 requirements at home, on 2L today and will continue to wean - continue dulera and scheduled duonebs to q6hrs while awake - continue prednisone 40mg po, spiriva (uses incruse ellipta at home), prn ventolin - discontinuing ceftriaxone and azithromycin as patient doesn't need coverage, CTA was without pnuemonia; sputum culture is pending and will restart abx if necessary -lung exam significantly improved today, wheezing still present; pt reports chest tightness is still present but improved (3) Demand ischemia of myocardium Code(s): I24.8 - OTHER FORMS OF ACUTE ISCHEMIC HEART DISEASE SNOMED Code(s): 225560655 Comment: -pt with elevated troponin 0.14 -> 0.15 -> 0.14 without EKG changes; likely a type 2 NSTEMI as patient arrived to ED with O2 sat of 83% -unable to find recent stress test results that patient reported -stress test and echo were ordered as patient has RODOLFO score of 2 and HEART score of 4. Stress test result is low risk; echo is normal, unchanged from echo in 2007 -chest tightness is improved but still present, likely related to COPD exacerbation (4) Positive urine culture Code(s): R82.79 - OTHER ABNORMAL FINDINGS ON MICROBIOLOG EXAMINATION OF URINE SNOMED Code(s): 575051050 Comment: -per patient, the urine sample collected in ED was not a clean catch -urine culture positive for E. coli, likely a contaminant -pt is asymptomatic and without fever; no treatment at this time but will continue to monitor (5) Abnormal uterine bleeding Code(s): N93.9 - ABNORMAL UTERINE AND VAGINAL BLEEDING, UNSPECIFIED SNOMED Code(s): 47075374866813 Comment: - pt reports she had her period approx 2 weeks ago and again at date of admission - possibly related to hyperthyroidism as TSH is mildly low - recommend further outpatient workup at discharge; patient is without a PCP at this time and will need referral to [facility] (6) Tobacco abuse Code(s): Z72.0 - TOBACCO USE SNOMED Code(s): 777226286 Comment: -nicotine inhaler ordered -discussed importance of smoking cessation in COPD (7) Hx of transient ischemic attack (TIA) Code(s): Z86.73 - PRSNL HX OF TIA (TIA), AND CEREB INFRC W/O RESID DEFICITS SNOMED Code(s): 464731491 Comment: -continue home ASA (8) DVT prophylaxis Code(s): JIS9204 - SNOMED Code(s): 340324238 Comment: - continue TID subQ heparin (9) Full code status Code(s): Z78.9 - OTHER SPECIFIED HEALTH STATUS SNOMED Code(s): 457252000 Comment: Status and Disposition: Patient will need referral to [facility] at discharge.
[2018-12-08] MEDS: Nicotine Inhaler* 10 MG AMP INH PRN ×2 (16:09→21:46)
[2018-12-08] MEDS: Atorvastatin* 10 MG TAB PO SCH (21:45)
[2018-12-09] MEDS: Albuterol 2.5 MG/3 ML NEB.SOL* (0.083%) INH SCH ×2 (01:45→08:30)
[2018-12-09] MEDS: Heparin VIAL(*) 5000 UNITS/ML VIAL (FIVE THOUSAND) SUBCUT SCH ×3 (05:40→22:22)
[2018-12-09] MEDS: Acetaminophen TAB* 325 MG PO PRN (05:40)
[2018-12-09 07:16] LABS: ABS Basophils 0.1 10^3/ul (0-0.2); ABS Eosinophils 0 10^3/ul (0-0.6); ABS Lymphocytes 1.1 10^3/ul (1.0-4.8); ABS Monocytes 0.2 10^3/ul (0-0.8); ABS Neutrophils 7.7 10^3/ul (1.5-7.7); ABS Nucleated RBC 0 10^3/ul; Eosinophil % 0 %; Hematocrit 38 % (33-41); Hemoglobin 12.7 g/dL (12.0-16.0); Lymphocyte % 12.5 %; Mean Corpuscular HGB Conc 34 g/dL (31-36); Mean Corpuscular Hemoglobin 31 pg (27-31); Mean Corpuscular Volume 93 fL (80-97); Mean Platelet Volume 10.1 fL (7.4-10.4); Nucleated Red Blood Cells % 0.1; Platelet Count 134 10^3/uL (150-450); Red Blood Count 4.08 10^6 /uL (3.70-4.87); Red Cell Distribution Width 14 % (10.5-15); White Blood Count 9.2 10^3/uL (3.5-10.8)
[2018-12-09 07:36] LABS: BUN/Creatinine Ratio 18.9 (8-20); Calcium 9.2 mg/dL (8.6-10.3); EGFR African American 152.3 (>60); EGFR Non-African American 125.9 (>60); Potassium 4.2 mmol/L (3.5-5.0)
[2018-12-09] MEDS: Nicotine Inhaler* 10 MG AMP INH PRN ×4 (08:07→19:40)
[2018-12-09] MEDS: Aspirin 81 mg CHEW TAB* 81 MG TAB.CHEW PO SCH (08:07)
[2018-12-09] MEDS: predniSONE TAB* 20 MG PO SCH ×2 (08:07→19:37)
[2018-12-09 08:18] LABS: Free T4 0.86 ng/dL (0.61-1.12)
[2018-12-09] MEDS: Mometasone/Formoter 100/5 MDI INH SCH ×2 (08:30→20:37)
[2018-12-09] MEDS: Tiotropium CAP.INH* CAP.INH/18 MCG (USE ORDER SET !) INH SCH (08:31)
[2018-12-09] MEDS ORDERED: Albuterol 2.5 MG/3 ML NEB.SOL* (0.083%) INH PRN (08:33)
[2018-12-09] MEDS: Atorvastatin* 10 MG TAB PO SCH (19:37)
--- NOTE | 2018-12-09 21:36 | PN ---
Subjective Date of Service: 12/09/18 Interval History: Patient has no complaints this morning. She denies dyspnea, chest pain, abd pain , n/v/d. She is agreeable to follow up at [facility] as she is without insurance and doesn't have a current PCP because of this. Objective Active Medications: Acetaminophen (Tylenol Tab*) 650 mg PO Q6H PRN PRN Reason: FEVER/PAIN Last Admin: 12/09/18 05:40 Dose: 650 mg Albuterol (Ventolin 2.5 Mg/3 Ml Neb.Bharti*) 2.5 mg INH Q4H PRN PRN Reason: SOB/WHEEZING Aspirin (Aspirin 81 Mg Chew Tab*) 81 mg PO DAILY [facility] Last Admin: 12/09/18 08:07 Dose: 81 mg Atorvastatin Calcium (Lipitor*) 10 mg PO BEDTIME [facility] Last Admin: 12/09/18 19:37 Dose: 10 mg Calcium Carbonate (Tums*) 500 mg PO Q4H PRN PRN Reason: INDIGESTION Last Admin: 12/07/18 22:02 Dose: 500 mg Device (Nicotine Mouth Piece*) 1 each INH .USE W/ CARTRIDGE PRN PRN Reason: WITHDRAWAL - NICOTINE Last Admin: 12/07/18 05:47 Dose: 1 each Heparin Sodium (Porcine) (Heparin Vial(*)) 5,000 units SUBCUT Q8HR [facility] Last Admin: 12/09/18 13:24 Dose: 5,000 units Mometasone Furoate/Formoterol Fumar (Dulera 100/5 Mdi*) 2 puff INH BID [facility] Last Admin: 12/09/18 20:37 Dose: 2 puff Nicotine (Nicotine Inhaler*) 10 mg INH Q2H PRN PRN Reason: CRAVING Last Admin: 12/09/18 19:40 Dose: 10 mg Ondansetron HCl (Zofran Inj*) 4 mg IV Q4H PRN PRN Reason: NAUSEA Last Admin: 12/06/18 23:03 Dose: 4 mg Prednisone (Deltasone Tab*) 40 mg PO BID [facility] Last Admin: 12/09/18 19:37 Dose: 40 mg Tiotropium Troy (Spiriva Cap.Inh*) 1 cap INH DAILY [facility] Last Admin: 12/09/18 08:31 Dose: 1 cap Vital Signs - 8 hr 12/09/18 12/09/1819 15:47 16:27 20:26 Temperature 97.6 F 97.6 F 98.0 F Pulse Rate 80 80 78 Respiratory 20 20 20 Rate Blood Pressure 130/72 130/72 138/69 (mmHg) O2 Sat by Pulse 92 92 93 Oximetry 12/09/18 20:39 Temperature Pulse Rate 74 Respiratory 20 Rate Blood Pressure (mmHg) O2 Sat by Pulse 93 Oximetry Oxygen Devices in Use Now: None Appearance: White female, appears older than stated age, sitting upright in hospital bed, appearing in NAD Eyes: No Scleral Icterus, PERRLA Ears/Nose/Mouth/Throat: Mucous Membranes Moist, - - Edentulous Neck: NL Appearance and Movements; NL JVP Respiratory: Symmetrical Chest Expansion and Respiratory Effort, - - Lungs with expiratory wheezing anteriorly and in middle and lower lung mckeon posteriorly Cardiovascular: NL Sounds; No Murmurs; No JVD, RRR Abdominal: - - abdomen soft, nontender, nondistended Extremities: No Edema, No Clubbing, Cyanosis, - - neg calf tenderness Skin: No Rash or Ulcers, - - Skin is warm, dry, intact Neurological: Alert and Oriented x 3, NL Muscle Strength and Tone Result Diagrams: 12/09/18 07:03 12/09/18 07:03 Additional Lab and Data: Lab Results Microbiology and Other Data: Microbiology 12/06/18 12:30 Aerobic Blood Culture - Preliminary Blood Venous No Growth Day 1 Anaerobic Blood Culture - Preliminary No Growth Day 1 12/06/18 11:25 Aerobic Blood Culture - Preliminary Blood Venous No Growth Day 1 Anaerobic Blood Culture - Preliminary No Growth Day 1 12/07/18 03:14 Gram Stain - Final Sputum Expectorated Assess/Plan/Problems-Billing Assessment: 42 yo white female with PMHx COPD, hx of TIA, depression, and tobacco use presents with shortness of breath, increased sputum production, and chest tightness. In the ED she was found to have O2 sat to 83% and a positive troponin which peaked at 0.15 without EKG changes. - Patient Problems (1) Acute respiratory failure with hypoxia Code(s): J96.01 - ACUTE RESPIRATORY FAILURE WITH HYPOXIA SNOMED Code(s): 92165720 Comment: -Patient arrived to ED with O2 of 83%, does not use oxygen at home -PE ruled out with CTA -likely due to COPD exacerbation - patient weaned to RA today and saturations are good at rest, however with ambulation dropped to 85% at two separate instances today; patient does not have insurance and would not be able to afford oxygen at home, will reassess tomorrow (2) COPD exacerbation Code(s): J44.1 - CHRONIC OBSTRUCTIVE PULMONARY DISEASE W (ACUTE) EXACERBATION SNOMED Code(s): 769653323 Comment: - no O2 requirements at home, on RA today but desaturated with ambulation as above - lung exam still with wheezing today but improved from yesterday - continue dulera and scheduled duonebs to q6hrs while awake - continue prednisone 40mg BID, spiriva (uses incruse ellipta at home), prn ventolin - sputum culture with normal oral lavelle (3) Demand ischemia of myocardium Code(s): I24.8 - OTHER FORMS OF ACUTE ISCHEMIC HEART DISEASE SNOMED Code(s): 171586253 Comment: -pt with elevated troponin 0.14 -> 0.15 -> 0.14 without EKG changes; likely a type 2 NSTEMI as patient arrived to ED with O2 sat of 83% -unable to find recent stress test results that patient reported -stress test and echo were ordered as patient has RODOLFO score of 2 and HEART score of 4. Stress test result is low risk; echo is normal, unchanged from echo in 2007 -chest tightness is resolved today (4) Positive urine culture Code(s): R82.79 - OTHER ABNORMAL FINDINGS ON MICROBIOLOG EXAMINATION OF URINE SNOMED Code(s): 798083318 Comment: -per patient, the urine sample collected in ED was not a clean catch -urine culture positive for E. coli, likely a contaminant -pt is asymptomatic and without fever; no treatment at this time but will continue to monitor (5) Subclinical hyperthyroidism Code(s): E05.90 - THYROTOXICOSIS, UNSP WITHOUT THYROTOXIC CRISIS OR STORM SNOMED Code(s): 751794718 Comment: -TSH 0.28, FT4 0.86 consistent with subclinical hyperthyroidism -no medical management warrented at this time, recommend follow up outpatient at discharge (6) Abnormal uterine bleeding Code(s): N93.9 - ABNORMAL UTERINE AND VAGINAL BLEEDING, UNSPECIFIED SNOMED Code(s): 89702367644749 Comment: - pt reports she had her period approx 2 weeks ago and again at date of admission - possibly related to hyperthyroidism - recommend further outpatient workup at discharge; patient is without a PCP at this time and will need referral to [facility] (7) Tobacco abuse Code(s): Z72.0 - TOBACCO USE SNOMED Code(s): 813416577 Comment: -nicotine inhaler ordered -discussed importance of smoking cessation in COPD (8) Hx of transient ischemic attack (TIA) Code(s): Z86.73 - PRSNL HX OF TIA (TIA), AND CEREB INFRC W/O RESID DEFICITS SNOMED Code(s): 636774113 Comment: -continue home ASA and lipitor (9) DVT prophylaxis Code(s): EWO6065 - SNOMED Code(s): 731839657 Comment: - continue TID subQ heparin (10) Full code status Code(s): Z78.9 - OTHER SPECIFIED HEALTH STATUS SNOMED Code(s): 820481123 Comment: Status and Disposition: Patient will need referral to [facility] at discharge.
[2018-12-10] MEDS: Acetaminophen TAB* 325 MG PO PRN (02:30)
[2018-12-10] MEDS: Heparin VIAL(*) 5000 UNITS/ML VIAL (FIVE THOUSAND) SUBCUT SCH ×2 (06:09→15:10)
[2018-12-10 07:03] LABS: Hematocrit 38 % (33-41); Hemoglobin 12.9 g/dL (12.0-16.0); Mean Corpuscular HGB Conc 34 g/dL (31-36); Mean Corpuscular Hemoglobin 31 pg (27-31); Mean Corpuscular Volume 93 fL (80-97); Mean Platelet Volume 10.1 fL (7.4-10.4); Platelet Count 148 10^3/uL (150-450); Red Blood Count 4.11 10^6 /uL (3.70-4.87); Red Cell Distribution Width 14 % (10.5-15); White Blood Count 14.9 10^3/uL (3.5-10.8)
[2018-12-10 07:23] LABS: BUN/Creatinine Ratio 23.1 (8-20); Calcium 9.3 mg/dL (8.6-10.3); EGFR African American 155.7 (>60); EGFR Non-African American 128.7 (>60); Potassium 4.1 mmol/L (3.5-5.0)
[2018-12-10] MEDS: Nicotine Inhaler* 10 MG AMP INH PRN (07:38)
[2018-12-10] MEDS: Mometasone/Formoter 100/5 MDI INH SCH (08:03)
[2018-12-10] MEDS: Tiotropium CAP.INH* CAP.INH/18 MCG (USE ORDER SET !) INH SCH (08:03)
[2018-12-10 08:10] LABS: ABS Basophils 0.1 10^3/ul (0-0.2); ABS Eosinophils 0 10^3/ul (0-0.6); ABS Lymphocytes 1.6 10^3/ul (1.0-4.8); ABS Monocytes 0.6 10^3/ul (0-0.8); ABS Neutrophils 12.7 10^3/ul (1.5-7.7); ABS Nucleated RBC 0.1 10^3/ul; Eosinophil % 0 %; Lymphocyte % 10.5 %; Nucleated Red Blood Cells % 0.3
[2018-12-10] MEDS: Aspirin 81 mg CHEW TAB* 81 MG TAB.CHEW PO SCH (09:49)
[2018-12-10] MEDS: predniSONE TAB* 20 MG PO SCH (09:49)
[2018-12-10 13:52] VITALS: BP 124/70
--- NOTE | 2018-12-11 00:35 | DS ---
Amended report to attach addendum to report. DISCHARGE SUMMARY: DATE OF ADMISSION: 12/06/18 DATE OF DISCHARGE: 12/10/18 PROVIDER: BURT Tripathi ATTENDING PHYSICIAN: Dr. Eladia Ahmadi * (dictated by BURT Tripathi). PRIMARY CARE PROVIDER: None due to insurance reasons. PRIMARY DIAGNOSES: 1. Chronic obstructive pulmonary disease exacerbation. 2. Subclinical hyperthyroidism. 3. Type 2 hhz-DF-jmpwqclkh myocardial infarction. SECONDARY DIAGNOSES: 1. Tobacco use. 2. Chronic obstructive pulmonary disease. 3. Hyperlipidemia. 4. History of transient ischemic attack. 5. Depression. STUDIES: Chest/abdomen/pelvis CTA on 12/06/18, impression: Slightly limited exam, no evidence of pulmonary embolism. No evidence for acute findings in abdomen or pelvis. Hepatic steatosis. Stress test on 12/08/18, impression: No fixed or reversible perfusion defect is identified. Assessment: Low risk. Echo on 12/08/18, transthoracic echo, conclusion: There is trace mitral regurgitation. There is trace tricuspid regurgitation. Global left ventricular wall motion and contractility are within normal limits. Estimated ejection fraction is 60% to 65%, similar to study on 11/11/06. EKG on 12/06/18, normal sinus rhythm, rate of 89 beats per minute, no ST depressions or elevations, no T-wave inversions, normal axis, similar to EKG on 05/11/18. Significant labs: Troponin on 12/06/18 was 0.14, then 0.15, and then 0.14. White blood cell count 6.7 on admission and 14.9 on discharge. TSH of 0.28, free T4 of 0.86. DISCHARGE MEDICATIONS: 1. Dulera inhaler 2 puffs inhaled b.i.d. 2. Prednisone 30 mg x3 days, 20 mg x3 days, 10 mg x3 days, and then discontinue. Continued home medications: 1. Aspirin 81 mg p.o. daily. 2. Lipitor 10 mg p.o. daily. 3. Incruse Ellipta inhaler 1 puff inhaled daily. 4. Albuterol nebulizer 2.5 mg inhaled q.6 hours p.r.n. HISTORY OF PRESENT ILLNESS/HOSPITAL COURSE: Abdoulaye Loera is a 43-year-old white female with a past medical history significant for history of COPD, tobacco use, history of TIA, who presented to emergency room with shortness of breath and nausea and vomiting. On the day of presentation, her nausea and vomiting had slowly improved. In the emergency department, she had an O2 saturation of 82%. She reported that she had an increase in her cough with increased sputum production and increased wheezing. At baseline, she does have some sputum production which is clear, but at the time of reporting to emergency department the sputum was yellow. She did not recall aspirating any vomit. In the emergency department, her influenza A and B were negative. Her troponins were found to be elevated to a peak of 0.15 without EKG changes and denied chest pain at the time of evaluation at admission. The patient reported that she had recently had a stress test at [facility] that placed her at low risk. The following day of admission, there was extensive searching for this apparent recent stress test via her prior PCP and via [facility] and there were no records found. This is why the stress test was delayed to the following day. Stress test was found to be low risk and echocardiogram was unchanged from prior in 2006. Therefore it was determined the patient was having type 2 NSTEMI related to her oxygen saturation of 82% at the time of admission related to her COPD exacerbation. For treatment of her COPD exacerbation during her stay, her home Incruse Ellipta was not available because that is non-formulary and she was given Spiriva. She was started on 40 mg of prednisone daily and was also started on Dulera in addition to scheduled DuoNebs. She was not progressing as expected and was continuing to require oxygen and did fail ambulating oxygen walks with desaturation to 85 % on the day prior to discharge despite prednisone being increased to b.i.d. the day prior. Additionally, a barrier to the patient's discharge was that she was without insurance and our director of casework was in the process of assisting her in acquiring Medicaid. Therefore she was unable to go home with oxygen because she also would not be able to pay for it out of pocket. Eventually on the date of discharge, the patient was able to walk on room air and was maintaining oxygen saturations over 94%. Her cough was improved and her shortness of breath was improved. It was heavily discussed during her admission the importance of smoking cessation in preventing her from being hospitalized again in terms of progression of her COPD. She was provided with a nicotine replacement inhaler. Sputum culture was obtained and found to have normal lavelle. For treatment of her history of TIA during her stay, home aspirin and home Lipitor were continued. Additionally, it is of note that the patient mentioned that she had her periods 2 weeks prior to presentation and was experiencing menstrual bleeding again. She was found to have subclinical hyperthyroidism based on lab values. Additionally of note, she was found to have a positive urine culture from the urine collected in the emergency department. However, it is determined that this urine was not a clean catch, and therefore, she was not treated for UTI. On day of discharge, the patient denies abdominal pain, chest pain, shortness of breath, nausea, vomiting, or diarrhea. She is feeling well. REVIEW OF SYSTEMS: All pertinent positives and negatives are in the HPI above, all other systems are negative. PHYSICAL EXAMINATION: General: A white female appearing older than stated age , sitting upright in bed, appearing comfortable, in no acute distress; sister at bedside. Head: Normocephalic, atraumatic. Eyes: PERRL. Sclerae anicteric. EOMI. ENT: Mucous membranes moist, edentulous. Neck: Supple without JVD. Cardiac: Regular rate and rhythm without murmurs, rubs, or gallops. Respiratory: Lungs are clear to auscultation. Chest expansion is symmetrical with respirations. Abdomen: Abdomen is soft, nontender, and nondistended. Extremities: No edema, clubbing, or calf tenderness. Neuro: Alert and oriented x3. No focal deficits. Psych: The patient's mood and affect are euthymic. Skin: Warm, dry, and intact. DISCHARGE PLAN: Diet: The patient is to return to regular diet. Activity: The patient is to return to regular activity as tolerated. The patient was provided with work excuse for tomorrow, but is to return to work if she is supposed to report on 12/12/18. The patient was provided with prescription for Dulera and advised to use [id number] nicotine lozenges for tobacco cessation as other forms of prescribed nicotine replacement therapy are out of her levine range due to financial barriers and lack of insurance. Additionally, the patient reports that she had a rash as a reaction to nicotine replacement patch in the past. Additionally, the patient was advised to call [facility] to find alternative forms of free nicotine replacement. Again, it was emphasized the importance of the patient's smoking cessation. The patient was provided with an appointment date for [facility] on 12/15/18 and was advised to call the office to change the appointment time if necessary. At this time, she should follow up regarding her COPD treatment, regarding her subclinical hyperthyroidism, and her irregular menstrual bleeding. As previously mentioned, case management did assist the patient with signing up for Medicaid and the patient is to call as directed to follow up to receive Medicaid benefits. For treatment of her COPD, she is to continue her current medications in addition to the Dulera and to continue the prednisone taper as prescribed. For treatment of her history of TIA, her current aspirin and statin are to be continued. CONDITION ON DISCHARGE: Stable. TIME SPENT: Approximately 50 minutes was spent on this discharge, approximately half of this time spent at bedside. BURT TRIPATHI ADDENDUM TO DISCHARGE SUMMARY: DISPOSITION: Home. BURT TRIPATHI [id number]/[facility] #: [id number]/[facility] #: [id number] MIKE
--- NOTE | 2018-12-15 11:40 | DS ---
DISCHARGE SUMMARY: ADDENDUM: DISPOSITION: Home. BURT GUERIN [id number]/[facility] #: [id number]
== END 2018-12-10 15:25 | disposition home or self-care (01) | DRG 189 ==
LOC: ED 10:50 → MEDTELE 15:20 → OBSVTOIN 12-07 14:00
PROVIDERS: ADMIT Student in an Organized Health Care Education/Training Program; ATTEND Internal Medicine
DX: J96.01 Acute respiratory failure with hypoxia (principal); I21.4 Non-ST elevation (NSTEMI) myocardial infarction; J44.1 Chronic obstructive pulmonary disease with (acute) exacerbation; E05.90 Thyrotoxicosis, unspecified without thyrotoxic crisis or storm; E78.5 Hyperlipidemia, unspecified; F17.210 Nicotine dependence, cigarettes, uncomplicated; F32.9 Major depressive disorder, single episode, unspecified; N93.9 Abnormal uterine and vaginal bleeding, unspecified; R82.79 Other abnormal findings on microbiological examination of urine; Z86.73 Personal history of transient ischemic attack (TIA), and cerebral infarction without residual deficits; Z79.82 Long term (current) use of aspirin; Z79.51 Long term (current) use of inhaled steroids; Z79.899 Other long term (current) drug therapy; Z82.3 Family history of stroke; Z82.49 Family history of ischemic heart disease and other diseases of the circulatory system
CPT/HCPCS: 36415; 71275; 74177; 78452; 80048; 80053; 81003; 81015; 82150; 82550; 82553; 82803; 83605; 83690; 83874; 83880; 84439; 84443; 84484; 84702; 85025; 85610; 86140; 87040; 87070; 87077; 87086; 87186; 87205; 87491; 87591; 93005; 93017; 93306; 94640; 99285; 99406; A9270-GY; A9502; G0378; J0456; J0696; J1644; J2405; J2785; J2930; J3475; J7512; Q9967